=== PATIENT | female | born 1950 | race Caucasian/White ===

== ENCOUNTER 2017-11-25 18:24 | Inpatient (IN) | payer MEDICARE, OTHER ==
[2017-11-25] MEDS: DILTIAZEM 25 MG INJ IV (19:37)
[2017-11-25] MEDS: ONDANSETRON 4 MG INJ IV (19:42)
[2017-11-25] MEDS: morphine 4 MG/ML VIAL IV (19:43)
[2017-11-25] MEDS: ASPIRIN 325 MG TAB PO (19:45)
[2017-11-25] MEDS: SOD CHLORIDE 0.9% 500 ML IV (19:51)
[2017-11-25] MEDS: DILTIAZEM-D5W 125MG/125ML DRIP 125 ML IV (19:51)
[2017-11-25 19:59] LABS: ADD MAN DIFF? NO
[2017-11-25 20:02] LABS: WHITE BLOOD COUNT 7.9 10^3/ul (4.8-10.8)
[2017-11-25 20:02] LABS: BASOPHILS % 0.5 % (0.0-2.0); EOSINOPHILS % 0.4 % (0.0-7.0); HEMATOCRIT 39.2 % (37.0-47.0); HEMOGLOBIN 12.7 g/dl (12.0-16.0); LYMPHOCYTES % 25.1 % (15.0-51.0); MEAN CORPUSCULAR HGB CONC 32.4 g/dl (32.0-37.0); MEAN CORPUSCULAR VOLUME 83.4 fl (82.0-101.0); MEAN PLATELET VOLUME 11.1 fl (7.4-10.4); MONOCYTE # 0.5 10^3/ul (0.3-0.9); MONOCYTES % 6.7 % (0.0-11.0); NEUTROPHIL # 5.3 10^3/ul (1.6-7.5); NEUTROPHILS % 66.9 % (39.0-77.0); PLATELET COUNT 271 10^3/UL (140-415)
[2017-11-25 20:21] LABS: ANION GAP 15 (8-16); BLOOD UREA NITROGEN 18 mg/dl (7-20); CARBON DIOXIDE 26 mmol/L (21-31); CHLORIDE 107 mmol/L (97-110); CREATININE 0.55 mg/dl (0.44-1.00); GLUCOSE 212 mg/dl (70-220); POTASSIUM 4.1 mmol/L (3.5-5.1); SODIUM 144 mmol/L (135-144)
[2017-11-25 20:33] LABS: B-TYPE NATRIURETIC PEPTIDE 1520 PG/ML (0-125); TROPONIN-I 0.046 ng/ml (0.00-0.12)
[2017-11-25] MEDS ORDERED: ACETAMINOPHEN 325 MG TAB PO (22:30)
[2017-11-25] MEDS ORDERED: ONDANSETRON 4 MG INJ IV (22:30)
[2017-11-26 03:49] LABS: CREATINE KINASE 33 IU/L (23-200)
[2017-11-26 04:01] LABS: CK INDEX 2.7; CK-MB 0.89 ng/ml (0.0-2.4); TROPONIN-I 0.047 ng/ml (0.00-0.12)
[2017-11-26] MEDS ORDERED: CARISOPRODOL 350 MG TAB PO (06:00)
[2017-11-26] MEDS ORDERED: NITROGLYCERIN (SL) 0.4 MG TAB SL (06:00)
[2017-11-26] MEDS ORDERED: ALBUTEROL/IPRATROPIUM (NEB) 3 ML AMP HHN (06:00)
[2017-11-26] MEDS ORDERED: NACL 0.9% 3 ML SYG IV (06:00)
[2017-11-26] MEDS ORDERED: IBUPROFEN 800 MG TAB PO (06:00)
[2017-11-26] MEDS: Discontinue current oral sulfonylureas (glyburide, glipizide, and/or glimepiride) prior to XX (07:00)
[2017-11-26] MEDS: HYPOGLYCEMIA PROTOCOL when Glucose is <70 mg/dL or symptomatic <90 mg/dL. XX (07:00)
[2017-11-26] MEDS ORDERED: DEXTROSE 50% 50 ML SYRINGE IV ×2 (07:30)
[2017-11-26] MEDS ORDERED: GLUCAGON 1 MG INJ IM (07:30)
[2017-11-26] MEDS ORDERED: GLUCOSE GEL 15 GRAM TUBE PO ×2 (07:30)
[2017-11-26] MEDS: [UNRECOGNIZED DRUG - REMARK] XX ×3 (07:30→23:30)
[2017-11-26] MEDS ORDERED: GLUCOSE GEL 15 GRAM TUBE BUCCAL (07:30)
[2017-11-26 08:43] LABS: ADD MAN DIFF? NO
[2017-11-26 08:49] LABS: BASOPHILS % 0.3 % (0.0-2.0); EOSINOPHILS % 0.4 % (0.0-7.0); HEMATOCRIT 39.8 % (37.0-47.0); HEMOGLOBIN 12.5 g/dl (12.0-16.0); LYMPHOCYTES # 2.2 10^3/ul (0.8-2.9); LYMPHOCYTES % 32.2 % (15.0-51.0); MEAN CORPUSCULAR HEMOGLOBIN 26.9 pg (29.0-33.0); MEAN CORPUSCULAR HGB CONC 31.4 g/dl (32.0-37.0); MEAN CORPUSCULAR VOLUME 85.6 fl (82.0-101.0); MEAN PLATELET VOLUME 10.4 fl (7.4-10.4); MONOCYTE # 0.6 10^3/ul (0.3-0.9); MONOCYTES % 8.2 % (0.0-11.0); NEUTROPHILS % 58.8 % (39.0-77.0); PLATELET COUNT 244 10^3/UL (140-415); RED BLOOD COUNT 4.65 10^6/ul (4.20-5.40); RED CELL DISTRIBUTION WIDTH 13.8 % (11.5-14.5)
[2017-11-26 08:49] LABS: WHITE BLOOD COUNT 6.8 10^3/ul (4.8-10.8)
[2017-11-26] MEDS ORDERED: INDAPAMIDE 2.5 MG PO (09:00)
[2017-11-26] MEDS ORDERED: ASPIRIN (EC) 81 MG TAB PO (09:00)
[2017-11-26] MEDS: BACLOFEN 10 MG TAB PO (09:07)
[2017-11-26] MEDS: INSULIN GLARGINE [LANtus] 3 ML PEN SC (09:07)
[2017-11-26] MEDS: LISINOPRIL 20 MG TAB PO (09:08)
[2017-11-26] MEDS: MELOXICAM 7.5 MG TAB PO (09:08)
[2017-11-26] MEDS: METOPROLOL 25 MG TAB PO ×2 (09:08→21:52)
[2017-11-26 09:09] LABS: ALANINE AMINOTRANSFERASE 28 IU/L (13-69); ALBUMIN/GLOBULIN RATIO 1.48; ALKALINE PHOSPHATASE 69 IU/L (42-121); ANION GAP 16 (8-16); ASPARTATE AMINO TRANSFERASE 16 IU/L (15-46); BILIRUBIN,INDIRECT 0.2 mg/dl (0-1.1); BILIRUBIN,TOTAL 0.2 mg/dl (0.2-1.3); BLOOD UREA NITROGEN 16 mg/dl (7-20); CALCIUM 9.9 mg/dl (8.4-10.2); CARBON DIOXIDE 30 mmol/L (21-31); CHLORIDE 104 mmol/L (97-110); CHOL/HDL RATIO 3.4 RATIO; CHOLESTEROL 145 mg/dl (100-200); CREATININE 0.58 mg/dl (0.44-1.00); GLUCOSE 207 mg/dl (70-220); HDL CHOLESTEROL 42 mg/dl (35-98); LDL CHOLESTEROL,CALCULATED 75 mg/dl; MAGNESIUM 1.6 mg/dl (1.7-2.5); SODIUM 145 mmol/L (135-144); TOTAL PROTEIN 6.7 g/dl (6.1-8.1); TRIGLYCERIDES 139 mg/dl (0-149)
[2017-11-26] MEDS: HEPARIN 5,000 UNIT/0.5 ML VIAL SC ×2 (09:09→21:57)
[2017-11-26 09:11] LABS: CREATINE KINASE 28 IU/L (23-200)
[2017-11-26 09:17] LABS: HEMOGLOBIN A1C 8.2 % (0-5.9)
[2017-11-26 09:21] LABS: CK INDEX 3.1; CK-MB 0.88 ng/ml (0.0-2.4); TROPONIN-I 0.036 ng/ml (0.00-0.12)
[2017-11-26] MEDS: INSULIN ASPART [NOVOLOG] 3 ML PEN SC ×4 (09:21→21:00)
[2017-11-26] MEDS: ONDANSETRON 4 MG INJ IV (10:46)
[2017-11-26] MEDS: morphine 2 MG INJ IV ×2 (10:46→17:36)
[2017-11-26] MEDS: MAGNESIUM OXIDE 400 MG TAB PO ×2 (14:02→22:54)
[2017-11-26] MEDS: ATORVASTATIN 40 MG TAB PO (21:52)
[2017-11-27] MEDS: LORAZEPAM 0.5 MG TAB PO ×2 (00:19→22:26)
[2017-11-27] MEDS: morphine 2 MG INJ IV ×2 (00:19→22:45)
[2017-11-27] MEDS: ACCU-CHEK XX (02:00)
[2017-11-27] MEDS: [UNRECOGNIZED DRUG - REMARK] XX ×3 (07:30→23:30)
[2017-11-27 08:16] LABS: ADD MAN DIFF? NO
[2017-11-27 08:18] LABS: WHITE BLOOD COUNT 5.5 10^3/ul (4.8-10.8)
[2017-11-27 08:18] LABS: BASOPHILS % 0.5 % (0.0-2.0); EOSINOPHILS # 0.1 10^3/ul (0.0-0.5); EOSINOPHILS % 0.9 % (0.0-7.0); HEMATOCRIT 37.9 % (37.0-47.0); HEMOGLOBIN 12.1 g/dl (12.0-16.0); LYMPHOCYTES # 2.3 10^3/ul (0.8-2.9); LYMPHOCYTES % 42.2 % (15.0-51.0); MEAN CORPUSCULAR HEMOGLOBIN 27.1 pg (29.0-33.0); MEAN CORPUSCULAR HGB CONC 31.9 g/dl (32.0-37.0); MEAN PLATELET VOLUME 10.8 fl (7.4-10.4); MONOCYTE # 0.4 10^3/ul (0.3-0.9); MONOCYTES % 7.8 % (0.0-11.0); NEUTROPHIL # 2.7 10^3/ul (1.6-7.5); NEUTROPHILS % 48.6 % (39.0-77.0); PLATELET COUNT 233 10^3/UL (140-415); RED BLOOD COUNT 4.46 10^6/ul (4.20-5.40); RED CELL DISTRIBUTION WIDTH 14.2 % (11.5-14.5)
[2017-11-27 08:54] LABS: ANION GAP 13 (8-16); BLOOD UREA NITROGEN 28 mg/dl (7-20); CALCIUM 9.2 mg/dl (8.4-10.2); CARBON DIOXIDE 28 mmol/L (21-31); CHLORIDE 107 mmol/L (97-110); CREATININE 0.57 mg/dl (0.44-1.00); GLUCOSE 234 mg/dl (70-220); MAGNESIUM 1.7 mg/dl (1.7-2.5); PHOSPHORUS 3.3 mg/dl (2.5-4.9); POTASSIUM 4.3 mmol/L (3.5-5.1); SODIUM 144 mmol/L (135-144)
[2017-11-27] MEDS: LISINOPRIL 20 MG TAB PO (09:00)
[2017-11-27] MEDS: INFLUENZA VIRUS VACCINE 0.5 ML SYG IM* (09:00)
[2017-11-27] MEDS: BACLOFEN 10 MG TAB PO (09:00)
[2017-11-27] MEDS: MAGNESIUM OXIDE 400 MG TAB PO ×2 (09:00→19:44)
[2017-11-27] MEDS: METOPROLOL 25 MG TAB PO (09:01)
[2017-11-27] MEDS: INSULIN ASPART [NOVOLOG] 3 ML PEN SC ×7 (09:12→21:03)
[2017-11-27] MEDS: INSULIN GLARGINE [LANtus] 3 ML PEN SC (09:12)
[2017-11-27] MEDS: HEPARIN 5,000 UNIT/0.5 ML VIAL SC ×2 (09:12→21:04)
[2017-11-27] MEDS: MELOXICAM 7.5 MG TAB PO (12:05)
[2017-11-27] MEDS: FUROSEMIDE 40 MG INJ IV (16:20)
[2017-11-27] MEDS: HYDROCODONE/APAP (5/325) TAB PO (16:25)
[2017-11-27] MEDS: RIVAROXABAN 20 MG TABLET PO (17:36)
[2017-11-27] MEDS ORDERED: FUROSEMIDE 40 MG INJ IV (18:00)
[2017-11-27] MEDS: ATORVASTATIN 40 MG TAB PO (19:43)
[2017-11-27] MEDS: METOPROLOL 50 MG TAB PO (19:44)
[2017-11-28] MEDS: ACCU-CHEK XX (02:00)
[2017-11-28] MEDS: FUROSEMIDE 40 MG INJ IV (06:14)
[2017-11-28 06:39] LABS: ADD MAN DIFF? NO
[2017-11-28 06:52] LABS: BASOPHILS % 0.4 % (0.0-2.0); EOSINOPHILS # 0.1 10^3/ul (0.0-0.5); HEMATOCRIT 41.2 % (37.0-47.0); HEMOGLOBIN 12.9 g/dl (12.0-16.0); LYMPHOCYTES # 3.1 10^3/ul (0.8-2.9); LYMPHOCYTES % 44.8 % (15.0-51.0); MEAN CORPUSCULAR HEMOGLOBIN 26.7 pg (29.0-33.0); MEAN CORPUSCULAR HGB CONC 31.3 g/dl (32.0-37.0); MEAN CORPUSCULAR VOLUME 85.1 fl (82.0-101.0); MEAN PLATELET VOLUME 10.6 fl (7.4-10.4); MONOCYTE # 0.6 10^3/ul (0.3-0.9); MONOCYTES % 8.7 % (0.0-11.0); NEUTROPHIL # 3.1 10^3/ul (1.6-7.5); NEUTROPHILS % 44.8 % (39.0-77.0); PLATELET COUNT 262 10^3/UL (140-415); RED BLOOD COUNT 4.84 10^6/ul (4.20-5.40); RED CELL DISTRIBUTION WIDTH 13.9 % (11.5-14.5)
[2017-11-28] MEDS: [UNRECOGNIZED DRUG - REMARK] XX (07:12)
[2017-11-28 07:21] LABS: ALANINE AMINOTRANSFERASE 52 IU/L (13-69); ALBUMIN 3.8 g/dl (3.3-4.9); ALBUMIN/GLOBULIN RATIO 1.35; ALKALINE PHOSPHATASE 79 IU/L (42-121); ANION GAP 17 (8-16); ASPARTATE AMINO TRANSFERASE 27 IU/L (15-46); BILIRUBIN,INDIRECT 0.1 mg/dl (0-1.1); BILIRUBIN,TOTAL 0.1 mg/dl (0.2-1.3); BLOOD UREA NITROGEN 34 mg/dl (7-20); CALCIUM 9.7 mg/dl (8.4-10.2); CARBON DIOXIDE 31 mmol/L (21-31); CHLORIDE 106 mmol/L (97-110); CREATININE 0.68 mg/dl (0.44-1.00); GLUCOSE 227 mg/dl (70-220); POTASSIUM 4.8 mmol/L (3.5-5.1); SODIUM 149 mmol/L (135-144); TOTAL PROTEIN 6.6 g/dl (6.1-8.1)
[2017-11-28] MEDS: INSULIN ASPART [NOVOLOG] 3 ML PEN SC ×7 (07:49→21:36)
[2017-11-28] MEDS: INSULIN GLARGINE [LANtus] 3 ML PEN SC (07:49)
[2017-11-28] MEDS: LISINOPRIL 20 MG TAB PO (08:21)
[2017-11-28] MEDS: MAGNESIUM OXIDE 400 MG TAB PO ×2 (08:22→21:18)
[2017-11-28] MEDS: METOPROLOL 50 MG TAB PO ×2 (08:22→21:18)
[2017-11-28] MEDS: BACLOFEN 10 MG TAB PO (08:22)
[2017-11-28] MEDS: HEPARIN 5,000 UNIT/0.5 ML VIAL SC ×2 (08:25→21:36)
[2017-11-28] MEDS: INDAPAMIDE 2.5 MG PO (10:22)
[2017-11-28] MEDS: HYDROCODONE/APAP (5/325) TAB PO (10:22)
[2017-11-28] MEDS: FUROSEMIDE 20 MG TAB PO (11:53)
[2017-11-28] MEDS: RIVAROXABAN 20 MG TABLET PO (17:27)
[2017-11-28] MEDS: ATORVASTATIN 40 MG TAB PO (21:18)
[2017-11-28] MEDS: morphine 2 MG INJ IV (21:19)
[2017-11-28] MEDS: LORAZEPAM 0.5 MG TAB PO (21:32)
[2017-11-29] MEDS: ACCU-CHEK XX (02:32)
[2017-11-29] MEDS: METOPROLOL 50 MG TAB PO ×2 (08:17→20:50)
[2017-11-29] MEDS: INDAPAMIDE 2.5 MG PO (08:18)
[2017-11-29] MEDS: FUROSEMIDE 20 MG TAB PO (08:18)
[2017-11-29] MEDS: MAGNESIUM OXIDE 400 MG TAB PO ×2 (08:18→20:49)
[2017-11-29] MEDS: LISINOPRIL 20 MG TAB PO (08:19)
[2017-11-29] MEDS: HEPARIN 5,000 UNIT/0.5 ML VIAL SC ×2 (08:25→20:50)
[2017-11-29] MEDS: INSULIN ASPART [NOVOLOG] 3 ML PEN SC ×7 (08:30→20:51)
[2017-11-29] MEDS: BACLOFEN 10 MG TAB PO (09:00)
[2017-11-29] MEDS: INSULIN GLARGINE [LANtus] 3 ML PEN SC (13:04)
[2017-11-29] MEDS ORDERED: morphine LIQ (10 MG/5 ML) CUP PO (13:30)
[2017-11-29] MEDS: ACETAMINOPHEN 325 MG TAB PO (16:29)
[2017-11-29] MEDS: RIVAROXABAN 20 MG TABLET PO (17:15)
[2017-11-29] MEDS: ATORVASTATIN 40 MG TAB PO (20:49)
[2017-11-29] MEDS: HYDROCODONE/APAP (5/325) TAB PO (20:56)
[2017-11-30] MEDS: ACCU-CHEK XX (00:01)
[2017-11-30] MEDS: LORAZEPAM 0.5 MG TAB PO (02:46)
[2017-11-30] MEDS: HYDROCODONE/APAP (5/325) TAB PO (02:46)
[2017-11-30] MEDS ORDERED: hydrALAzine 20 MG INJ (04:08)
[2017-11-30] MEDS: hydrALAzine 20 MG INJ IV (04:10)
[2017-11-30] MEDS: BACLOFEN 10 MG TAB PO (08:26)
[2017-11-30] MEDS: MAGNESIUM OXIDE 400 MG TAB PO (08:26)
[2017-11-30] MEDS: FUROSEMIDE 20 MG TAB PO (08:27)
[2017-11-30] MEDS: LISINOPRIL 20 MG TAB PO (08:27)
[2017-11-30] MEDS: INDAPAMIDE 2.5 MG PO (08:28)
[2017-11-30] MEDS: METOPROLOL 50 MG TAB PO (08:28)
[2017-11-30] MEDS: HEPARIN 5,000 UNIT/0.5 ML VIAL SC (08:32)
[2017-11-30] MEDS: INSULIN ASPART [NOVOLOG] 3 ML PEN SC ×4 (08:33→13:00)
[2017-11-30] MEDS: INSULIN GLARGINE [LANtus] 3 ML PEN SC (08:41)
[2017-11-30] MEDS: ACETAMINOPHEN 325 MG TAB PO (13:46)
== END 2017-11-30 16:34 | disposition home or self-care (01) | DRG 293 ==
LOC: E/R 18:24 → MS3 22:18 → MS4 11-26 18:55
DX: I11.0 Hypertensive heart disease with heart failure (principal); I48.91 Unspecified atrial fibrillation; E11.65 Type 2 diabetes mellitus with hyperglycemia; I50.33 Acute on chronic diastolic (congestive) heart failure; M25.552 Pain in left hip; Z79.84 Long term (current) use of oral hypoglycemic drugs; Z79.82 Long term (current) use of aspirin; Z86.73 Personal history of transient ischemic attack (TIA), and cerebral infarction without residual deficits
CPT/HCPCS: 36415; 71045; 73510; 73700; 80048; 80053; 80061; 82550; 82553; 82962; 83036; 83735; 83880; 84100; 84443; 84484; 85025; 90686; 93005; 93306; 96372; 96374; 96375; 96376; 97110; 97116; 97163; 99291-25

== ENCOUNTER 2017-11-30 23:23 | Inpatient (IN) | payer MEDICARE, OTHER ==
[2017-12-01] MEDS: HYDROCODONE/APAP (10/325) TAB PO (00:08)
[2017-12-01] MEDS: KETOROLAC 30 MG INJ IM (01:29)
[2017-12-01 03:19] LABS: ADD MAN DIFF? NO
[2017-12-01 03:20] LABS: WHITE BLOOD COUNT 9.1 10^3/ul (4.8-10.8)
[2017-12-01 03:20] LABS: BASOPHILS % 0.3 % (0.0-2.0); EOSINOPHILS # 0.1 10^3/ul (0.0-0.5); EOSINOPHILS % 0.7 % (0.0-7.0); HEMATOCRIT 40.8 % (37.0-47.0); HEMOGLOBIN 13.1 g/dl (12.0-16.0); LYMPHOCYTES # 2.8 10^3/ul (0.8-2.9); LYMPHOCYTES % 30.7 % (15.0-51.0); MEAN CORPUSCULAR HGB CONC 32.1 g/dl (32.0-37.0); MEAN CORPUSCULAR VOLUME 84.1 fl (82.0-101.0); MEAN PLATELET VOLUME 10.7 fl (7.4-10.4); MONOCYTE # 0.8 10^3/ul (0.3-0.9); MONOCYTES % 8.7 % (0.0-11.0); NEUTROPHIL # 5.4 10^3/ul (1.6-7.5); NEUTROPHILS % 59.2 % (39.0-77.0); PLATELET COUNT 249 10^3/UL (140-415); RED BLOOD COUNT 4.85 10^6/ul (4.20-5.40)
[2017-12-01 03:47] LABS: ADD UMIC NO; UR ASCORBIC ACID NEGATIVE (NEGATIVE); UR BILIRUBIN (Dip) NEGATIVE (NEGATIVE); UR BLOOD (Dip) NEGATIVE (NEGATIVE); UR CLARITY CLEAR (CLEAR); UR COLOR YELLOW (YELLOW); UR GLUCOSE (Dip) 2+ mg/dL (NEGATIVE); UR KETONES (Dip) NEGATIVE (NEGATIVE); UR LEUKOCYTE ESTERASE (Dip) NEGATIVE Leu/ul (NEGATIVE); UR NITRITE (Dip) NEGATIVE (NEGATIVE); UR SPECIFIC GRAVITY (Dip) 1.012 (1.003-1.030); UR TOTAL PROTEIN (Dip) NEGATIVE (NEGATIVE); UR UROBILINOGEN (Dip) NEGATIVE (NEGATIVE)
[2017-12-01 03:54] LABS: ALANINE AMINOTRANSFERASE 69 IU/L (13-69); ALBUMIN 4.2 g/dl (3.3-4.9); ALBUMIN/GLOBULIN RATIO 1.31; ALKALINE PHOSPHATASE 90 IU/L (42-121); ANION GAP 15 (8-16); ASPARTATE AMINO TRANSFERASE 27 IU/L (15-46); BILIRUBIN,INDIRECT 0.2 mg/dl (0-1.1); BILIRUBIN,TOTAL 0.2 mg/dl (0.2-1.3); BLOOD UREA NITROGEN 26 mg/dl (7-20); CALCIUM 10.3 mg/dl (8.4-10.2); CARBON DIOXIDE 29 mmol/L (21-31); CHLORIDE 102 mmol/L (97-110); CREATININE 0.61 mg/dl (0.44-1.00); GLUCOSE 235 mg/dl (70-220); LIPASE 50 U/L (23-300); POTASSIUM 3.7 mmol/L (3.5-5.1); SODIUM 142 mmol/L (135-144); TOTAL PROTEIN 7.4 g/dl (6.1-8.1)
[2017-12-01 04:05] LABS: INR 1.01; PROTIME 13.4 Sec (11.9-14.9)
[2017-12-01 04:06] LABS: PARTIAL THROMBOPLASTIN TIME 27.3 Sec (25.0-35.0)
[2017-12-01] MEDS: LORAZEPAM 2 MG INJ IV (05:40)
[2017-12-01] MEDS: HYDROCODONE/APAP (5/325) TAB PO ×3 (10:59→21:36)
[2017-12-01] MEDS ORDERED: [UNRECOGNIZED DRUG - OTHER] PO (12:30)
[2017-12-01] MEDS ORDERED: morphine 2 MG INJ IV (12:30)
[2017-12-01] MEDS ORDERED: GLUCOSE GEL 15 GRAM TUBE PO ×2 (12:30)
[2017-12-01] MEDS ORDERED: METFORMIN HCL PO (12:30)
[2017-12-01] MEDS ORDERED: DEXTROSE 50% 50 ML SYRINGE IV ×2 (12:30)
[2017-12-01] MEDS ORDERED: LINAGLIPTIN PO (12:30)
[2017-12-01] MEDS ORDERED: GLUCAGON 1 MG INJ IM (12:30)
[2017-12-01] MEDS ORDERED: GLUCOSE GEL 15 GRAM TUBE BUCCAL (12:30)
[2017-12-01] MEDS: INSULIN ASPART [NOVOLOG] 3 ML PEN SC ×5 (12:48→21:00)
[2017-12-01] MEDS: METOPROLOL (XL) 50 MG TAB PO (14:17)
[2017-12-01] MEDS ORDERED: DICLOFENAC SODIUM 1% GEL 100 GM TUBE TP (17:00)
[2017-12-01] MEDS: metFORMIN 500 MG TAB PO (17:31)
[2017-12-01] MEDS: RIVAROXABAN 20 MG TABLET PO (17:31)
[2017-12-01] MEDS: LINAGLIPTIN 5 MG TABLET PO (17:31)
[2017-12-01] MEDS: INSULIN GLARGINE [LANtus] 3 ML PEN SC (21:27)
[2017-12-01] MEDS: ATORVASTATIN 40 MG TAB PO (21:33)
[2017-12-02] MEDS: ACCU-CHEK XX (02:00)
[2017-12-02 05:08] LABS: ADD MAN DIFF? NO
[2017-12-02 05:10] LABS: BASOPHILS % 0.5 % (0.0-2.0); EOSINOPHILS # 0.1 10^3/ul (0.0-0.5); EOSINOPHILS % 1.3 % (0.0-7.0); HEMATOCRIT 39.5 % (37.0-47.0); HEMOGLOBIN 12.7 g/dl (12.0-16.0); LYMPHOCYTES # 3.3 10^3/ul (0.8-2.9); LYMPHOCYTES % 41.9 % (15.0-51.0); MEAN CORPUSCULAR HEMOGLOBIN 27.2 pg (29.0-33.0); MEAN CORPUSCULAR HGB CONC 32.2 g/dl (32.0-37.0); MEAN CORPUSCULAR VOLUME 84.6 fl (82.0-101.0); MONOCYTE # 0.7 10^3/ul (0.3-0.9); MONOCYTES % 9.3 % (0.0-11.0); NEUTROPHIL # 3.7 10^3/ul (1.6-7.5); NEUTROPHILS % 46.6 % (39.0-77.0); PLATELET COUNT 248 10^3/UL (140-415); RED BLOOD COUNT 4.67 10^6/ul (4.20-5.40); RED CELL DISTRIBUTION WIDTH 14.5 % (11.5-14.5)
[2017-12-02 05:10] LABS: WHITE BLOOD COUNT 7.9 10^3/ul (4.8-10.8)
[2017-12-02 05:39] LABS: ANION GAP 16 (8-16); BLOOD UREA NITROGEN 50 mg/dl (7-20); CALCIUM 9.8 mg/dl (8.4-10.2); CARBON DIOXIDE 26 mmol/L (21-31); CHLORIDE 105 mmol/L (97-110); CREATININE 0.81 mg/dl (0.44-1.00); GLUCOSE 185 mg/dl (70-220); POTASSIUM 4.6 mmol/L (3.5-5.1); SODIUM 142 mmol/L (135-144)
[2017-12-02] MEDS: metFORMIN 500 MG TAB PO ×2 (08:52→17:38)
[2017-12-02] MEDS: LINAGLIPTIN 5 MG TABLET PO ×2 (08:53→17:38)
[2017-12-02] MEDS: INSULIN ASPART [NOVOLOG] 3 ML PEN SC ×7 (08:55→20:56)
[2017-12-02] MEDS: METOPROLOL (XL) 50 MG TAB PO ×2 (08:57→09:00)
[2017-12-02] MEDS: LISINOPRIL 20 MG TAB PO (09:14)
[2017-12-02] MEDS: HYDROCODONE/APAP (5/325) TAB PO ×3 (09:14→22:43)
[2017-12-02] MEDS: RIVAROXABAN 20 MG TABLET PO (17:37)
[2017-12-02] MEDS: ATORVASTATIN 40 MG TAB PO (20:59)
[2017-12-02] MEDS: INSULIN GLARGINE [LANtus] 3 ML PEN SC (20:59)
[2017-12-03] MEDS: ACCU-CHEK XX (02:00)
[2017-12-03] MEDS: INSULIN ASPART [NOVOLOG] 3 ML PEN SC ×7 (08:26→20:38)
[2017-12-03] MEDS: METOPROLOL (XL) 50 MG TAB PO (08:28)
[2017-12-03] MEDS: LISINOPRIL 20 MG TAB PO (08:28)
[2017-12-03] MEDS: LINAGLIPTIN 5 MG TABLET PO ×2 (08:28→17:43)
[2017-12-03] MEDS: metFORMIN 500 MG TAB PO ×2 (08:28→17:43)
[2017-12-03] MEDS: HYDROCODONE/APAP (5/325) TAB PO ×3 (08:33→22:40)
[2017-12-03] MEDS: BISACODYL (EC) 5 MG TAB PO (12:48)
[2017-12-03] MEDS ORDERED: morphine 2 MG INJ IV (13:00)
[2017-12-03] MEDS: RIVAROXABAN 20 MG TABLET PO (17:43)
[2017-12-03] MEDS: morphine 2 MG INJ IV (17:54)
[2017-12-03] MEDS: ATORVASTATIN 40 MG TAB PO (20:39)
[2017-12-03] MEDS: INSULIN GLARGINE [LANtus] 3 ML PEN SC (20:41)
[2017-12-04] MEDS: ACCU-CHEK XX (01:03)
[2017-12-04] MEDS: morphine 2 MG INJ IV ×5 (06:17→17:23)
[2017-12-04] MEDS: INSULIN ASPART [NOVOLOG] 3 ML PEN SC ×7 (08:21→20:54)
[2017-12-04] MEDS: metFORMIN 500 MG TAB PO ×2 (08:22→17:17)
[2017-12-04] MEDS: METOPROLOL (XL) 50 MG TAB PO (08:23)
[2017-12-04] MEDS: LISINOPRIL 20 MG TAB PO (08:23)
[2017-12-04] MEDS: LINAGLIPTIN 5 MG TABLET PO ×2 (08:27→17:17)
[2017-12-04] MEDS: CALCIUM CARBONATE 500 MG CHEW TAB PO (16:10)
[2017-12-04] MEDS: BISACODYL (EC) 5 MG TAB PO (17:17)
[2017-12-04] MEDS: RIVAROXABAN 20 MG TABLET PO (17:21)
[2017-12-04] MEDS: INSULIN GLARGINE [LANtus] 3 ML PEN SC (20:11)
[2017-12-04] MEDS: ATORVASTATIN 40 MG TAB PO (20:51)
[2017-12-04] MEDS: HYDROCODONE/APAP (5/325) TAB PO (21:36)
[2017-12-05] MEDS: ACCU-CHEK XX (02:00)
[2017-12-05 04:53] LABS: ADD MAN DIFF? NO
[2017-12-05 05:05] LABS: WHITE BLOOD COUNT 8.2 10^3/ul (4.8-10.8)
[2017-12-05 05:05] LABS: BASOPHILS % 0.5 % (0.0-2.0); EOSINOPHILS # 0.1 10^3/ul (0.0-0.5); EOSINOPHILS % 0.9 % (0.0-7.0); HEMATOCRIT 39.6 % (37.0-47.0); HEMOGLOBIN 12.8 g/dl (12.0-16.0); LYMPHOCYTES % 36.8 % (15.0-51.0); MEAN CORPUSCULAR HEMOGLOBIN 27.2 pg (29.0-33.0); MEAN CORPUSCULAR HGB CONC 32.3 g/dl (32.0-37.0); MEAN CORPUSCULAR VOLUME 84.3 fl (82.0-101.0); MONOCYTE # 0.6 10^3/ul (0.3-0.9); MONOCYTES % 7.6 % (0.0-11.0); NEUTROPHIL # 4.4 10^3/ul (1.6-7.5); NEUTROPHILS % 53.8 % (39.0-77.0); PLATELET COUNT 240 10^3/UL (140-415); RED CELL DISTRIBUTION WIDTH 14.1 % (11.5-14.5)
[2017-12-05 05:32] LABS: ANION GAP 18 (8-16); BLOOD UREA NITROGEN 32 mg/dl (7-20); CALCIUM 9.9 mg/dl (8.4-10.2); CARBON DIOXIDE 23 mmol/L (21-31); CHLORIDE 109 mmol/L (97-110); CREATININE 0.59 mg/dl (0.44-1.00); GLUCOSE 146 mg/dl (70-220); POTASSIUM 4.2 mmol/L (3.5-5.1); SODIUM 146 mmol/L (135-144)
[2017-12-05] MEDS: morphine 2 MG INJ IV ×5 (06:00→23:15)
[2017-12-05] MEDS: metFORMIN 500 MG TAB PO ×2 (08:43→18:05)
[2017-12-05] MEDS: INSULIN ASPART [NOVOLOG] 3 ML PEN SC ×7 (08:44→20:34)
[2017-12-05] MEDS: METOPROLOL (XL) 50 MG TAB PO (08:48)
[2017-12-05] MEDS: LISINOPRIL 20 MG TAB PO (08:49)
[2017-12-05] MEDS: LINAGLIPTIN 5 MG TABLET PO ×2 (08:51→18:05)
[2017-12-05] MEDS: HYDROCODONE/APAP (5/325) TAB PO ×2 (09:02→20:44)
[2017-12-05] MEDS: POLYETHYLENE GLYCOL 17 GM PACKET PO (10:00)
[2017-12-05] MEDS: SENNA/DOCUSATE NA (8.6MG/50MG) TAB PO ×2 (10:00→20:44)
[2017-12-05] MEDS: RIVAROXABAN 20 MG TABLET PO (18:43)
[2017-12-05] MEDS: ATORVASTATIN 40 MG TAB PO (20:45)
[2017-12-05] MEDS: INSULIN GLARGINE [LANtus] 3 ML PEN SC (20:46)
[2017-12-06] MEDS: HYDROCODONE/APAP (5/325) TAB PO ×3 (01:40→20:46)
[2017-12-06] MEDS: ACCU-CHEK XX (01:40)
[2017-12-06] MEDS: morphine 2 MG INJ IV ×3 (05:01→17:21)
[2017-12-06] MEDS: metFORMIN 500 MG TAB PO ×2 (07:59→17:17)
[2017-12-06] MEDS: INSULIN ASPART [NOVOLOG] 3 ML PEN SC ×7 (08:01→20:50)
[2017-12-06] MEDS: METOPROLOL (XL) 50 MG TAB PO (08:06)
[2017-12-06] MEDS: POLYETHYLENE GLYCOL 17 GM PACKET PO (08:06)
[2017-12-06] MEDS: SENNA/DOCUSATE NA (8.6MG/50MG) TAB PO ×2 (08:06→20:47)
[2017-12-06] MEDS: LISINOPRIL 20 MG TAB PO (08:06)
[2017-12-06] MEDS: LINAGLIPTIN 5 MG TABLET PO ×2 (08:09→17:18)
[2017-12-06 09:21] LABS: ADD MAN DIFF? NO
[2017-12-06 09:27] LABS: BASOPHIL # 0.1 10^3/ul (0.0-0.1); BASOPHILS % 0.7 % (0.0-2.0); EOSINOPHILS # 0.1 10^3/ul (0.0-0.5); EOSINOPHILS % 1.1 % (0.0-7.0); HEMATOCRIT 40.2 % (37.0-47.0); HEMOGLOBIN 12.9 g/dl (12.0-16.0); LYMPHOCYTES # 2.5 10^3/ul (0.8-2.9); LYMPHOCYTES % 35.5 % (15.0-51.0); MEAN CORPUSCULAR HGB CONC 32.1 g/dl (32.0-37.0); MEAN CORPUSCULAR VOLUME 84.3 fl (82.0-101.0); MEAN PLATELET VOLUME 11.1 fl (7.4-10.4); MONOCYTE # 0.6 10^3/ul (0.3-0.9); MONOCYTES % 7.8 % (0.0-11.0); NEUTROPHIL # 3.8 10^3/ul (1.6-7.5); NEUTROPHILS % 54.5 % (39.0-77.0); PLATELET COUNT 252 10^3/UL (140-415); RED BLOOD COUNT 4.77 10^6/ul (4.20-5.40); RED CELL DISTRIBUTION WIDTH 14.3 % (11.5-14.5)
[2017-12-06 09:55] LABS: ANION GAP 14 (8-16); BLOOD UREA NITROGEN 36 mg/dl (7-20); CALCIUM 9.5 mg/dl (8.4-10.2); CARBON DIOXIDE 24 mmol/L (21-31); CHLORIDE 107 mmol/L (97-110); CREATININE 0.57 mg/dl (0.44-1.00); GLUCOSE 196 mg/dl (70-220); POTASSIUM 4.2 mmol/L (3.5-5.1); SODIUM 141 mmol/L (135-144)
[2017-12-06] MEDS: RIVAROXABAN 20 MG TABLET PO (17:17)
[2017-12-06] MEDS: ATORVASTATIN 40 MG TAB PO (20:47)
[2017-12-06] MEDS: INSULIN GLARGINE [LANtus] 3 ML PEN SC (20:50)
[2017-12-07] MEDS: morphine 2 MG INJ IV ×3 (00:44→12:00)
[2017-12-07] MEDS: ACCU-CHEK XX (02:00)
[2017-12-07] MEDS: INSULIN ASPART [NOVOLOG] 3 ML PEN SC ×7 (08:00→20:41)
[2017-12-07] MEDS: SENNA/DOCUSATE NA (8.6MG/50MG) TAB PO ×2 (08:15→20:50)
[2017-12-07] MEDS: metFORMIN 500 MG TAB PO ×2 (08:15→17:36)
[2017-12-07] MEDS: LISINOPRIL 20 MG TAB PO (08:16)
[2017-12-07] MEDS: LINAGLIPTIN 5 MG TABLET PO ×2 (08:20→17:35)
[2017-12-07] MEDS: POLYETHYLENE GLYCOL 17 GM PACKET PO (08:21)
[2017-12-07] MEDS: METOPROLOL (XL) 50 MG TAB PO (08:22)
[2017-12-07 16:00] LABS: ANION GAP 19 (8-16); BLOOD UREA NITROGEN 31 mg/dl (7-20); CALCIUM 9.9 mg/dl (8.4-10.2); CARBON DIOXIDE 23 mmol/L (21-31); CHLORIDE 107 mmol/L (97-110); CREATININE 0.62 mg/dl (0.44-1.00); GLUCOSE 102 mg/dl (70-220); MAGNESIUM 1.7 mg/dl (1.7-2.5); POTASSIUM 4.5 mmol/L (3.5-5.1); SODIUM 144 mmol/L (135-144)
[2017-12-07] MEDS: RIVAROXABAN 20 MG TABLET PO (17:35)
[2017-12-07] MEDS: HYDROCODONE/APAP (5/325) TAB PO (17:36)
[2017-12-07 20:02] LABS: TROPONIN-I < 0.012 ng/ml (0.00-0.12)
[2017-12-07] MEDS: ATORVASTATIN 40 MG TAB PO (20:50)
[2017-12-07] MEDS: INSULIN GLARGINE [LANtus] 3 ML PEN SC (20:56)
[2017-12-08 01:24] LABS: TROPONIN-I 0.026 ng/ml (0.00-0.12)
[2017-12-08] MEDS: ACCU-CHEK XX (01:52)
[2017-12-08 05:51] LABS: ADD MAN DIFF? NO
[2017-12-08 05:54] LABS: BASOPHILS % 0.5 % (0.0-2.0); EOSINOPHILS # 0.1 10^3/ul (0.0-0.5); EOSINOPHILS % 0.8 % (0.0-7.0); HEMATOCRIT 40.1 % (37.0-47.0); HEMOGLOBIN 12.8 g/dl (12.0-16.0); LYMPHOCYTES # 3.2 10^3/ul (0.8-2.9); LYMPHOCYTES % 40.6 % (15.0-51.0); MEAN CORPUSCULAR HEMOGLOBIN 26.6 pg (29.0-33.0); MEAN CORPUSCULAR HGB CONC 31.9 g/dl (32.0-37.0); MEAN CORPUSCULAR VOLUME 83.2 fl (82.0-101.0); MEAN PLATELET VOLUME 10.7 fl (7.4-10.4); MONOCYTE # 0.6 10^3/ul (0.3-0.9); PLATELET COUNT 242 10^3/UL (140-415); RED BLOOD COUNT 4.82 10^6/ul (4.20-5.40); RED CELL DISTRIBUTION WIDTH 13.7 % (11.5-14.5)
[2017-12-08 05:54] LABS: WHITE BLOOD COUNT 7.9 10^3/ul (4.8-10.8)
[2017-12-08 06:37] LABS: TROPONIN-I 0.025 ng/ml (0.00-0.12)
[2017-12-08 06:52] LABS: ANION GAP 14 (8-16); BLOOD UREA NITROGEN 36 mg/dl (7-20); CALCIUM 10.2 mg/dl (8.4-10.2); CARBON DIOXIDE 24 mmol/L (21-31); CHLORIDE 109 mmol/L (97-110); GLUCOSE 130 mg/dl (70-220); POTASSIUM 4.4 mmol/L (3.5-5.1); SODIUM 143 mmol/L (135-144)
[2017-12-08] MEDS: LINAGLIPTIN 5 MG TABLET PO ×2 (08:45→17:09)
[2017-12-08] MEDS: SENNA/DOCUSATE NA (8.6MG/50MG) TAB PO ×2 (08:46→20:35)
[2017-12-08] MEDS: METOPROLOL (XL) 50 MG TAB PO (08:47)
[2017-12-08] MEDS: metFORMIN 500 MG TAB PO ×2 (08:47→17:10)
[2017-12-08] MEDS: LISINOPRIL 20 MG TAB PO ×2 (08:47→20:35)
[2017-12-08] MEDS: INSULIN ASPART [NOVOLOG] 3 ML PEN SC ×7 (08:49→20:38)
[2017-12-08] MEDS: POLYETHYLENE GLYCOL 17 GM PACKET PO (08:52)
[2017-12-08] MEDS: HYDROCODONE/APAP (5/325) TAB PO ×2 (08:55→16:18)
[2017-12-08] MEDS: RIVAROXABAN 20 MG TABLET PO (17:09)
[2017-12-08] MEDS: ATORVASTATIN 40 MG TAB PO (20:35)
[2017-12-08] MEDS: INSULIN GLARGINE [LANtus] 3 ML PEN SC (20:39)
[2017-12-09] MEDS: ACCU-CHEK XX (02:31)
[2017-12-09] MEDS: HYDROCODONE/APAP (5/325) TAB PO (02:33)
[2017-12-09] MEDS: metFORMIN 500 MG TAB PO ×2 (08:11→17:16)
[2017-12-09] MEDS: SENNA/DOCUSATE NA (8.6MG/50MG) TAB PO (08:12)
[2017-12-09] MEDS: LISINOPRIL 20 MG TAB PO ×2 (08:12→20:57)
[2017-12-09] MEDS: POLYETHYLENE GLYCOL 17 GM PACKET PO (08:12)
[2017-12-09] MEDS: METOPROLOL (XL) 25 MG TAB PO (08:12)
[2017-12-09] MEDS: INSULIN ASPART [NOVOLOG] 3 ML PEN SC ×7 (08:15→20:54)
[2017-12-09] MEDS: LINAGLIPTIN 5 MG TABLET PO ×2 (08:17→17:16)
[2017-12-09 10:00] LABS: ADD MAN DIFF? NO
[2017-12-09 10:03] LABS: WHITE BLOOD COUNT 7.2 10^3/ul (4.8-10.8)
[2017-12-09 10:03] LABS: BASOPHILS % 0.4 % (0.0-2.0); EOSINOPHILS % 0.6 % (0.0-7.0); HEMATOCRIT 40.7 % (37.0-47.0); LYMPHOCYTES # 2.2 10^3/ul (0.8-2.9); LYMPHOCYTES % 29.9 % (15.0-51.0); MEAN CORPUSCULAR HEMOGLOBIN 26.6 pg (29.0-33.0); MEAN CORPUSCULAR HGB CONC 31.9 g/dl (32.0-37.0); MEAN CORPUSCULAR VOLUME 83.4 fl (82.0-101.0); MEAN PLATELET VOLUME 10.9 fl (7.4-10.4); MONOCYTE # 0.4 10^3/ul (0.3-0.9); MONOCYTES % 5.8 % (0.0-11.0); NEUTROPHIL # 4.5 10^3/ul (1.6-7.5); PLATELET COUNT 249 10^3/UL (140-415); RED BLOOD COUNT 4.88 10^6/ul (4.20-5.40); RED CELL DISTRIBUTION WIDTH 13.6 % (11.5-14.5)
[2017-12-09 10:20] LABS: ANION GAP 13 (8-16); BLOOD UREA NITROGEN 24 mg/dl (7-20); CALCIUM 9.8 mg/dl (8.4-10.2); CARBON DIOXIDE 26 mmol/L (21-31); CHLORIDE 106 mmol/L (97-110); CREATININE 0.57 mg/dl (0.44-1.00); GLUCOSE 187 mg/dl (70-220); POTASSIUM 4.3 mmol/L (3.5-5.1); SODIUM 141 mmol/L (135-144)
[2017-12-09] MEDS: RIVAROXABAN 20 MG TABLET PO (17:17)
[2017-12-09] MEDS: INSULIN GLARGINE [LANtus] 3 ML PEN SC ×3 (20:00→22:32)
[2017-12-09] MEDS: ATORVASTATIN 40 MG TAB PO (20:56)
[2017-12-10] MEDS: ACCU-CHEK XX (01:43)
[2017-12-10] MEDS: HYDROCODONE/APAP (5/325) TAB PO ×3 (03:36→17:20)
[2017-12-10] MEDS: METOPROLOL (XL) 25 MG TAB PO (09:00)
[2017-12-10] MEDS: POLYETHYLENE GLYCOL 17 GM PACKET PO (09:00)
[2017-12-10] MEDS: LISINOPRIL 20 MG TAB PO (09:02)
[2017-12-10] MEDS: metFORMIN 500 MG TAB PO ×2 (09:03→17:20)
[2017-12-10] MEDS: LINAGLIPTIN 5 MG TABLET PO ×2 (09:11→17:38)
[2017-12-10] MEDS: INSULIN ASPART [NOVOLOG] 3 ML PEN SC ×6 (09:15→17:23)
[2017-12-10] MEDS: RIVAROXABAN 20 MG TABLET PO (17:20)
[2017-12-11] MEDS ORDERED: AMLODIPINE 5 MG TAB PO (09:00)
== END 2017-12-10 19:00 | disposition home health service (06) | DRG 605 ==
LOC: MS4 12-07 14:50 → E/R 23:23 → PP2 12-01 05:18
DX: S70.02XA Contusion of left hip, initial encounter (principal); I48.0 Paroxysmal atrial fibrillation; I10 Essential (primary) hypertension; W01.0XXA Fall on same level from slipping, tripping and stumbling without subsequent striking against object, initial encounter; R00.1 Bradycardia, unspecified; E11.9 Type 2 diabetes mellitus without complications; Z79.02 Long term (current) use of antithrombotics/antiplatelets; Z86.73 Personal history of transient ischemic attack (TIA), and cerebral infarction without residual deficits; E78.5 Hyperlipidemia, unspecified; E66.9 Obesity, unspecified; Z68.32 Body mass index [BMI] 32.0-32.9, adult; Y92.000 Kitchen of unspecified non-institutional (private) residence as the place of occurrence of the external cause; M25.552 Pain in left hip
CPT/HCPCS: 36415; 73510; 80048; 80053; 81003; 82962; 83690; 83735; 84443; 84484; 85025; 85610; 85730; 87081; 93005; 96372; 96374; 97110; 97116; 97163; 97530; 99285-25; G0378

== ENCOUNTER 2018-04-09 19:37 | Inpatient (IN) | payer MEDICARE, OTHER ==
[2018-04-09 19:56] LABS: ADD MAN DIFF? NO
[2018-04-09 19:58] LABS: BASOPHIL # 0.1 10^3/ul (0.0-0.1); BASOPHILS % 0.5 % (0.0-2.0); EOSINOPHILS # 0.1 10^3/ul (0.0-0.5); EOSINOPHILS % 1.3 % (0.0-7.0); HEMATOCRIT 41.3 % (37.0-47.0); HEMOGLOBIN 12.7 g/dl (12.0-16.0); LYMPHOCYTES # 4.2 10^3/ul (0.8-2.9); LYMPHOCYTES % 37.6 % (15.0-51.0); MEAN CORPUSCULAR HEMOGLOBIN 26.8 pg (29.0-33.0); MEAN CORPUSCULAR HGB CONC 30.8 g/dl (32.0-37.0); MEAN CORPUSCULAR VOLUME 87.3 fl (82.0-101.0); MEAN PLATELET VOLUME 11.1 fl (7.4-10.4); MONOCYTE # 0.7 10^3/ul (0.3-0.9); MONOCYTES % 6.1 % (0.0-11.0); NEUTROPHILS % 54.1 % (39.0-77.0); PLATELET COUNT 276 10^3/UL (140-415); RED BLOOD COUNT 4.73 10^6/ul (4.20-5.40); RED CELL DISTRIBUTION WIDTH 13.6 % (11.5-14.5)
[2018-04-09 19:58] LABS: WHITE BLOOD COUNT 11.2 10^3/ul (4.8-10.8)
[2018-04-09] MEDS ORDERED: NITROGLYCERIN 50 MG/D5W (PMX) 250 ML IV (20:00)
[2018-04-09] MEDS: ENALAPRILAT 1.25 MG INJ IV (20:02)
[2018-04-09] MEDS: FUROSEMIDE 40 MG INJ IV (20:02)
[2018-04-09] MEDS: ASPIRIN 81 MG TAB PO (20:03)
[2018-04-09 20:06] LABS: INR 1.05; PROTIME 13.8 Sec (11.9-14.9); PT RATIO 1.1
[2018-04-09 20:07] LABS: PARTIAL THROMBOPLASTIN TIME 30.2 Sec (25.0-35.0)
[2018-04-09 20:09] LABS: ALANINE AMINOTRANSFERASE 99 IU/L (13-69); ALBUMIN 4.2 g/dl (3.3-4.9); ALBUMIN/GLOBULIN RATIO 1.35; ALKALINE PHOSPHATASE 120 IU/L (42-121); ANION GAP 14 (8-16); ASPARTATE AMINO TRANSFERASE 50 IU/L (15-46); BILIRUBIN,INDIRECT 0.2 mg/dl (0-1.1); BILIRUBIN,TOTAL 0.2 mg/dl (0.2-1.3); BLOOD UREA NITROGEN 22 mg/dl (7-20); CALCIUM 9.7 mg/dl (8.4-10.2); CARBON DIOXIDE 27 mmol/L (21-31); CHLORIDE 108 mmol/L (97-110); CREATININE 0.63 mg/dl (0.44-1.00); GLUCOSE 323 mg/dl (70-220); LIPASE 80 U/L (23-300); POTASSIUM 5.3 mmol/L (3.5-5.1); SODIUM 144 mmol/L (135-144); TOTAL PROTEIN 7.3 g/dl (6.1-8.1)
[2018-04-09 20:20] LABS: B-TYPE NATRIURETIC PEPTIDE 1110 PG/ML (0-125)
[2018-04-09 20:21] LABS: TROPONIN-I < 0.012 ng/ml (0.000-0.120)
[2018-04-10] MEDS ORDERED: ACETAMINOPHEN 325 MG TAB PO (01:30)
[2018-04-10] MEDS: ACCU-CHEK XX (02:00)
[2018-04-10] MEDS ORDERED: GLUCOSE GEL 15 GRAM TUBE PO ×2 (03:00)
[2018-04-10] MEDS ORDERED: DEXTROSE 50% 50 ML SYRINGE IV ×2 (03:00)
[2018-04-10] MEDS ORDERED: GLUCOSE GEL 15 GRAM TUBE BUCCAL (03:00)
[2018-04-10] MEDS ORDERED: GLUCAGON 1 MG INJ IM (03:00)
[2018-04-10] MEDS ORDERED: FUROSEMIDE 40 MG INJ IV (06:00)
[2018-04-10] MEDS: FUROSEMIDE 20 MG TAB PO (07:37)
[2018-04-10] MEDS: ATENOLOL 25 MG TAB PO ×2 (08:47→09:00)
[2018-04-10] MEDS: INSULIN ASPART [NOVOLOG] 3 ML PEN SC ×8 (09:00→22:03)
[2018-04-10] MEDS: metFORMIN 500 MG TAB GTB ×2 (09:12→17:10)
[2018-04-10] MEDS: FUROSEMIDE 20 MG INJ IV ×2 (09:12→17:09)
[2018-04-10] MEDS ORDERED: INSULIN ASPART [NOVOLOG] 3 ML PEN SC (11:50)
[2018-04-10 12:15] LABS: B-TYPE NATRIURETIC PEPTIDE 3840 PG/ML (0-125)
[2018-04-10 12:15] LABS: TROPONIN-I 0.056 ng/ml (0.000-0.120)
[2018-04-10] MEDS: LINAGLIPTIN 5 MG TABLET PO (17:10)
[2018-04-10] MEDS ORDERED: LINAGLIPTIN 5 MG TABLET PO (17:55)
[2018-04-10] MEDS: RIVAROXABAN 20 MG TABLET PO (21:26)
[2018-04-10] MEDS: INSULIN GLARGINE [LANtus] 3 ML PEN SC (22:03)
[2018-04-11] MEDS: ACCU-CHEK XX (03:50)
[2018-04-11] MEDS: FUROSEMIDE 20 MG INJ IV ×2 (05:42→17:53)
[2018-04-11 07:20] LABS: ADD MAN DIFF? NO
[2018-04-11 07:26] LABS: WHITE BLOOD COUNT 6.8 10^3/ul (4.8-10.8)
[2018-04-11 07:26] LABS: BASOPHILS % 0.6 % (0.0-2.0); EOSINOPHILS # 0.1 10^3/ul (0.0-0.5); EOSINOPHILS % 1.6 % (0.0-7.0); HEMATOCRIT 36.3 % (37.0-47.0); HEMOGLOBIN 11.4 g/dl (12.0-16.0); LYMPHOCYTES # 2.8 10^3/ul (0.8-2.9); LYMPHOCYTES % 41.9 % (15.0-51.0); MEAN CORPUSCULAR HEMOGLOBIN 27.3 pg (29.0-33.0); MEAN CORPUSCULAR HGB CONC 31.4 g/dl (32.0-37.0); MEAN CORPUSCULAR VOLUME 87.1 fl (82.0-101.0); MONOCYTE # 0.6 10^3/ul (0.3-0.9); MONOCYTES % 9.3 % (0.0-11.0); NEUTROPHIL # 3.1 10^3/ul (1.6-7.5); NEUTROPHILS % 46.3 % (39.0-77.0); PLATELET COUNT 230 10^3/UL (140-415); RED BLOOD COUNT 4.17 10^6/ul (4.20-5.40); RED CELL DISTRIBUTION WIDTH 13.8 % (11.5-14.5)
[2018-04-11 07:53] LABS: ANION GAP 11 (8-16); BLOOD UREA NITROGEN 26 mg/dl (7-20); CALCIUM 9.4 mg/dl (8.4-10.2); CARBON DIOXIDE 32 mmol/L (21-31); CHLORIDE 106 mmol/L (97-110); CREATININE 0.63 mg/dl (0.44-1.00); GLUCOSE 163 mg/dl (70-220); POTASSIUM 4.1 mmol/L (3.5-5.1); SODIUM 145 mmol/L (135-144)
[2018-04-11] MEDS: ATENOLOL 25 MG TAB PO (08:08)
[2018-04-11] MEDS: LISINOPRIL 5 MG TAB PO (08:08)
[2018-04-11] MEDS: ASPIRIN (EC) 325 MG TAB PO (08:08)
[2018-04-11] MEDS: metFORMIN 500 MG TAB GTB ×2 (08:09→17:53)
[2018-04-11] MEDS: INSULIN ASPART [NOVOLOG] 3 ML PEN SC ×7 (08:18→20:19)
[2018-04-11] MEDS: LINAGLIPTIN 5 MG TABLET PO (17:54)
[2018-04-11] MEDS: RIVAROXABAN 20 MG TABLET PO (17:54)
[2018-04-11] MEDS ORDERED: RIVAROXABAN 20 MG TABLET PO (17:55)
[2018-04-11] MEDS: INSULIN GLARGINE [LANtus] 3 ML PEN SC (20:26)
[2018-04-12] MEDS: ACCU-CHEK XX (02:00)
[2018-04-12] MEDS: FUROSEMIDE 20 MG INJ IV ×2 (06:41→17:28)
[2018-04-12] MEDS: metFORMIN 500 MG TAB GTB ×2 (08:30→17:27)
[2018-04-12] MEDS: ASPIRIN (EC) 81 MG TAB PO (08:31)
[2018-04-12] MEDS: SPIRONOLACTONE 25 MG TAB PO (08:31)
[2018-04-12] MEDS: METOPROLOL (XL) 25 MG TAB PO (08:33)
[2018-04-12] MEDS: LISINOPRIL 5 MG TAB PO (08:34)
[2018-04-12] MEDS: INSULIN ASPART [NOVOLOG] 3 ML PEN SC ×7 (09:09→20:19)
[2018-04-12 10:46] LABS: ADD MAN DIFF? NO
[2018-04-12 10:48] LABS: WHITE BLOOD COUNT 7.5 10^3/ul (4.8-10.8)
[2018-04-12 10:48] LABS: BASOPHILS % 0.4 % (0.0-2.0); EOSINOPHILS # 0.1 10^3/ul (0.0-0.5); EOSINOPHILS % 1.1 % (0.0-7.0); HEMATOCRIT 36.6 % (37.0-47.0); HEMOGLOBIN 11.2 g/dl (12.0-16.0); LYMPHOCYTES # 2.1 10^3/ul (0.8-2.9); LYMPHOCYTES % 28.5 % (15.0-51.0); MEAN CORPUSCULAR HEMOGLOBIN 26.7 pg (29.0-33.0); MEAN CORPUSCULAR HGB CONC 30.6 g/dl (32.0-37.0); MEAN CORPUSCULAR VOLUME 87.1 fl (82.0-101.0); MEAN PLATELET VOLUME 10.8 fl (7.4-10.4); MONOCYTE # 0.6 10^3/ul (0.3-0.9); MONOCYTES % 7.8 % (0.0-11.0); NEUTROPHIL # 4.6 10^3/ul (1.6-7.5); NEUTROPHILS % 61.8 % (39.0-77.0); PLATELET COUNT 229 10^3/UL (140-415); RED CELL DISTRIBUTION WIDTH 13.7 % (11.5-14.5)
[2018-04-12 11:11] LABS: ANION GAP 12 (8-16); BLOOD UREA NITROGEN 25 mg/dl (7-20); CALCIUM 9.7 mg/dl (8.4-10.2); CARBON DIOXIDE 29 mmol/L (21-31); CHLORIDE 104 mmol/L (97-110); CREATININE 0.63 mg/dl (0.44-1.00); GLUCOSE 212 mg/dl (70-220); POTASSIUM 4.3 mmol/L (3.5-5.1); SODIUM 141 mmol/L (135-144)
[2018-04-12] MEDS: RIVAROXABAN 20 MG TABLET PO (17:27)
[2018-04-12] MEDS: LINAGLIPTIN 5 MG TABLET PO (17:27)
[2018-04-12] MEDS: INSULIN GLARGINE [LANtus] 3 ML PEN SC (20:07)
[2018-04-12] MEDS: NIFEdipine (XL) 30 MG TAB PO (20:19)
[2018-04-12] MEDS ORDERED: LINAGLIPTIN PO (21:00)
[2018-04-12] MEDS ORDERED: [UNRECOGNIZED DRUG - OTHER] PO (21:00)
[2018-04-12] MEDS ORDERED: METFORMIN HCL PO (21:00)
[2018-04-13] MEDS: ACCU-CHEK XX ×2 (02:02→21:28)
[2018-04-13] MEDS: FUROSEMIDE 20 MG INJ IV (06:17)
[2018-04-13] MEDS: INSULIN ASPART [NOVOLOG] 3 ML PEN SC ×7 (07:55→21:00)
[2018-04-13] MEDS: metFORMIN 500 MG TAB GTB ×2 (08:16→17:54)
[2018-04-13] MEDS: METOPROLOL (XL) 25 MG TAB PO (08:17)
[2018-04-13] MEDS: ASPIRIN (EC) 81 MG TAB PO (08:17)
[2018-04-13] MEDS: LISINOPRIL 5 MG TAB PO (08:17)
[2018-04-13] MEDS: NIFEdipine (XL) 30 MG TAB PO ×2 (08:17→21:23)
[2018-04-13] MEDS: SPIRONOLACTONE 25 MG TAB PO (08:18)
[2018-04-13 09:40] LABS: ADD MAN DIFF? NO
[2018-04-13 09:44] LABS: WHITE BLOOD COUNT 6.5 10^3/ul (4.8-10.8)
[2018-04-13 09:44] LABS: BASOPHILS % 0.5 % (0.0-2.0); EOSINOPHILS # 0.1 10^3/ul (0.0-0.5); EOSINOPHILS % 1.2 % (0.0-7.0); HEMATOCRIT 35.6 % (37.0-47.0); HEMOGLOBIN 11.3 g/dl (12.0-16.0); LYMPHOCYTES % 30.6 % (15.0-51.0); MEAN CORPUSCULAR HEMOGLOBIN 27.4 pg (29.0-33.0); MEAN CORPUSCULAR HGB CONC 31.7 g/dl (32.0-37.0); MEAN CORPUSCULAR VOLUME 86.2 fl (82.0-101.0); MONOCYTE # 0.5 10^3/ul (0.3-0.9); MONOCYTES % 7.7 % (0.0-11.0); NEUTROPHIL # 3.9 10^3/ul (1.6-7.5); NEUTROPHILS % 59.7 % (39.0-77.0); PLATELET COUNT 220 10^3/UL (140-415); RED BLOOD COUNT 4.13 10^6/ul (4.20-5.40); RED CELL DISTRIBUTION WIDTH 13.5 % (11.5-14.5)
[2018-04-13 10:20] LABS: ANION GAP 10 (8-16); BLOOD UREA NITROGEN 24 mg/dl (7-20); CALCIUM 9.4 mg/dl (8.4-10.2); CARBON DIOXIDE 31 mmol/L (21-31); CHLORIDE 104 mmol/L (97-110); CREATININE 0.65 mg/dl (0.44-1.00); GLUCOSE 196 mg/dl (70-220); MAGNESIUM 1.4 mg/dl (1.7-2.5); PHOSPHORUS 4.3 mg/dl (2.5-4.9); POTASSIUM 4.4 mmol/L (3.5-5.1); SODIUM 141 mmol/L (135-144)
[2018-04-13] MEDS: LINAGLIPTIN 5 MG TABLET PO (17:53)
[2018-04-13] MEDS: RIVAROXABAN 20 MG TABLET PO (17:53)
[2018-04-13] MEDS: FUROSEMIDE 40 MG INJ IV (17:55)
[2018-04-13] MEDS ORDERED: MAGNESIUM SULFATE 2 GM/50 ML 50 ML IVPB (20:00)
[2018-04-13] MEDS: INSULIN GLARGINE [LANtus] 3 ML PEN SC (21:40)
[2018-04-14] MEDS: FUROSEMIDE 40 MG INJ IV ×2 (07:03→17:26)
[2018-04-14] MEDS: metFORMIN 500 MG TAB GTB ×2 (08:20→17:25)
[2018-04-14] MEDS: ASPIRIN (EC) 81 MG TAB PO (08:20)
[2018-04-14] MEDS: LISINOPRIL 10 MG TAB PO (08:21)
[2018-04-14] MEDS: NIFEdipine (XL) 30 MG TAB PO ×2 (08:21→21:40)
[2018-04-14] MEDS: METOPROLOL (XL) 25 MG TAB PO (08:22)
[2018-04-14] MEDS: SPIRONOLACTONE 25 MG TAB PO (08:22)
[2018-04-14] MEDS: INSULIN ASPART [NOVOLOG] 3 ML PEN SC ×7 (08:26→21:48)
[2018-04-14 11:51] LABS: ANION GAP 14 (8-16); BLOOD UREA NITROGEN 22 mg/dl (7-20); CARBON DIOXIDE 30 mmol/L (21-31); CHLORIDE 103 mmol/L (97-110); CREATININE 0.67 mg/dl (0.44-1.00); GLUCOSE 194 mg/dl (70-220); POTASSIUM 4.7 mmol/L (3.5-5.1); SODIUM 142 mmol/L (135-144)
[2018-04-14] MEDS: LINAGLIPTIN 5 MG TABLET PO (17:25)
[2018-04-14] MEDS: INSULIN GLARGINE [LANtus] 3 ML PEN SC (21:47)
[2018-04-15] MEDS: ACCU-CHEK XX (02:00)
[2018-04-15] MEDS: FUROSEMIDE 40 MG INJ IV ×2 (06:38→18:12)
[2018-04-15] MEDS: INSULIN ASPART [NOVOLOG] 3 ML PEN SC ×7 (07:55→20:33)
[2018-04-15] MEDS: metFORMIN 500 MG TAB GTB (08:58)
[2018-04-15] MEDS: ASPIRIN (EC) 81 MG TAB PO ×2 (09:00→09:02)
[2018-04-15] MEDS: NIFEdipine (XL) 30 MG TAB PO ×2 (09:00→20:31)
[2018-04-15] MEDS: METOPROLOL (XL) 25 MG TAB PO (09:01)
[2018-04-15] MEDS: LISINOPRIL 10 MG TAB PO (09:01)
[2018-04-15] MEDS: SPIRONOLACTONE 25 MG TAB PO (09:02)
[2018-04-15] MEDS: DIAZEPAM 5 MG TAB PO (09:49)
[2018-04-15] MEDS: DIPHENHYDRAMINE 50 MG CAP PO (09:49)
[2018-04-15 10:01] LABS: AADO2 Arterial 41.4 mmHg (7.0-24.0); Allen Test ACCEPTAB; Arterial Base Excess 4.1 mmol/L (-3.0-3); Arterial Blood Gas Oxygen Sat 93.9 mmHG (95.0-98.0); Arterial COHb 0.5 % (0.0-3.0); Arterial Fraction of Oxyhgb 93.1 % (93.0-99.0); Arterial HCO3 27.1 mmol/L (22.0-26.0); Arterial MetHb 0.3 % (0.0-1.5); Arterial Total Hemglobin 13.6 g/dl (12.0-18.0); Arterial pCO2 35.6 mmhg (35-45); MODE ROOM AIR; Site Right Radial
[2018-04-15] MEDS ORDERED: HEPARIN 1000 UNITS/ML 10 ML INJ (10:34)
[2018-04-15] MEDS ORDERED: LIDOCAINE 1% (MDV) 20 ML INJ (10:34)
[2018-04-15] MEDS ORDERED: IODIXANOL LOCM 100 ML BTL (10:34)
[2018-04-15] MEDS ORDERED: VERAPAMIL 5 MG INJ (10:35)
[2018-04-15] MEDS ORDERED: MIDAZOLAM 1 MG/ML 2 ML INJ (10:35)
[2018-04-15] MEDS ORDERED: FENTAnyl 50 MCG/ML VIAL (10:35)
[2018-04-15] MEDS ORDERED: SOD CHLORIDE 0.9% 500 ML (10:35)
[2018-04-15] MEDS ORDERED: NITROGLYCERIN (IC) 100 MCG/ML INJ (10:35)
[2018-04-15] MEDS ORDERED: ONDANSETRON 4 MG INJ IV (11:30)
[2018-04-15] MEDS ORDERED: ACETAMINOPHEN 325 MG TAB PO (11:30)
[2018-04-15] MEDS: SOD CHLORIDE 0.9% 1,000 ML IV (12:00)
[2018-04-15 14:25] LABS: ADD MAN DIFF? NO
[2018-04-15 14:26] LABS: BASOPHIL # 0.1 10^3/ul (0.0-0.1); BASOPHILS % 0.6 % (0.0-2.0); EOSINOPHILS # 0.1 10^3/ul (0.0-0.5); EOSINOPHILS % 1.4 % (0.0-7.0); HEMATOCRIT 42.1 % (37.0-47.0); HEMOGLOBIN 13.1 g/dl (12.0-16.0); LYMPHOCYTES # 3.3 10^3/ul (0.8-2.9); LYMPHOCYTES % 41.9 % (15.0-51.0); MEAN CORPUSCULAR HEMOGLOBIN 26.9 pg (29.0-33.0); MEAN CORPUSCULAR HGB CONC 31.1 g/dl (32.0-37.0); MEAN CORPUSCULAR VOLUME 86.4 fl (82.0-101.0); MEAN PLATELET VOLUME 10.2 fl (7.4-10.4); MONOCYTE # 0.6 10^3/ul (0.3-0.9); MONOCYTES % 8.1 % (0.0-11.0); NEUTROPHIL # 3.7 10^3/ul (1.6-7.5); NEUTROPHILS % 47.6 % (39.0-77.0); PLATELET COUNT 276 10^3/UL (140-415); RED BLOOD COUNT 4.87 10^6/ul (4.20-5.40); RED CELL DISTRIBUTION WIDTH 13.6 % (11.5-14.5)
[2018-04-15 14:26] LABS: WHITE BLOOD COUNT 7.8 10^3/ul (4.8-10.8)
[2018-04-15 15:05] LABS: ANION GAP 15 (8-16); BLOOD UREA NITROGEN 21 mg/dl (7-20); CALCIUM 9.7 mg/dl (8.4-10.2); CARBON DIOXIDE 28 mmol/L (21-31); CHLORIDE 106 mmol/L (97-110); CREATININE 0.64 mg/dl (0.44-1.00); GLUCOSE 122 mg/dl (70-220); POTASSIUM 4.3 mmol/L (3.5-5.1); SODIUM 145 mmol/L (135-144)
[2018-04-15 15:09] LABS: INR 1.01; PROTIME 13.4 Sec (11.9-14.9)
[2018-04-15] MEDS: LINAGLIPTIN 5 MG TABLET PO (18:12)
[2018-04-15] MEDS: INSULIN GLARGINE [LANtus] 3 ML PEN SC (20:30)
[2018-04-16] MEDS: ACCU-CHEK XX (02:35)
[2018-04-16] MEDS: NIFEdipine (XL) 30 MG TAB PO ×2 (08:11→20:13)
[2018-04-16] MEDS: ASPIRIN (EC) 81 MG TAB PO (08:11)
[2018-04-16] MEDS: LISINOPRIL 10 MG TAB PO (08:12)
[2018-04-16] MEDS: METOPROLOL (XL) 25 MG TAB PO (08:12)
[2018-04-16] MEDS: SPIRONOLACTONE 25 MG TAB PO (08:13)
[2018-04-16] MEDS: FUROSEMIDE 40 MG INJ IV ×2 (08:13→17:06)
[2018-04-16] MEDS: INSULIN ASPART [NOVOLOG] 3 ML PEN SC ×7 (08:16→20:23)
[2018-04-16 09:54] LABS: ADD MAN DIFF? NO
[2018-04-16 09:56] LABS: WHITE BLOOD COUNT 7.9 10^3/ul (4.8-10.8)
[2018-04-16 09:56] LABS: BASOPHILS % 0.5 % (0.0-2.0); EOSINOPHILS # 0.2 10^3/ul (0.0-0.5); EOSINOPHILS % 1.9 % (0.0-7.0); HEMATOCRIT 40.8 % (37.0-47.0); HEMOGLOBIN 12.7 g/dl (12.0-16.0); LYMPHOCYTES # 2.7 10^3/ul (0.8-2.9); LYMPHOCYTES % 34.3 % (15.0-51.0); MEAN CORPUSCULAR HEMOGLOBIN 26.9 pg (29.0-33.0); MEAN CORPUSCULAR HGB CONC 31.1 g/dl (32.0-37.0); MEAN CORPUSCULAR VOLUME 86.4 fl (82.0-101.0); MEAN PLATELET VOLUME 10.1 fl (7.4-10.4); MONOCYTE # 0.6 10^3/ul (0.3-0.9); MONOCYTES % 8.1 % (0.0-11.0); NEUTROPHIL # 4.4 10^3/ul (1.6-7.5); NEUTROPHILS % 54.8 % (39.0-77.0); PLATELET COUNT 281 10^3/UL (140-415); RED BLOOD COUNT 4.72 10^6/ul (4.20-5.40); RED CELL DISTRIBUTION WIDTH 13.7 % (11.5-14.5)
[2018-04-16 10:23] LABS: ANION GAP 16 (8-16); BLOOD UREA NITROGEN 27 mg/dl (7-20); CALCIUM 9.9 mg/dl (8.4-10.2); CARBON DIOXIDE 31 mmol/L (21-31); CHLORIDE 101 mmol/L (97-110); CREATININE 0.74 mg/dl (0.44-1.00); GLUCOSE 215 mg/dl (70-220); POTASSIUM 4.4 mmol/L (3.5-5.1); SODIUM 144 mmol/L (135-144)
[2018-04-16] MEDS: LINAGLIPTIN 5 MG TABLET PO (17:06)
[2018-04-16] MEDS: INSULIN GLARGINE [LANtus] 3 ML PEN SC (20:16)
[2018-04-17] MEDS: ACCU-CHEK XX (02:16)
[2018-04-17] MEDS: FUROSEMIDE 40 MG INJ IV ×2 (06:34→17:05)
[2018-04-17] MEDS: NIFEdipine (XL) 30 MG TAB PO ×2 (08:15→21:02)
[2018-04-17] MEDS: LISINOPRIL 10 MG TAB PO (08:16)
[2018-04-17] MEDS: METOPROLOL (XL) 25 MG TAB PO (08:16)
[2018-04-17] MEDS: SPIRONOLACTONE 25 MG TAB PO (08:16)
[2018-04-17] MEDS: INSULIN ASPART [NOVOLOG] 3 ML PEN SC ×7 (08:22→21:12)
[2018-04-17] MEDS: ASPIRIN (EC) 81 MG TAB PO (08:23)
[2018-04-17] MEDS: LINAGLIPTIN 5 MG TABLET PO (17:01)
[2018-04-17] MEDS: INSULIN GLARGINE [LANtus] 3 ML PEN SC (21:12)
[2018-04-18] MEDS: ACCU-CHEK XX (02:00)
[2018-04-18] MEDS: FUROSEMIDE 40 MG INJ IV ×3 (05:46→17:18)
[2018-04-18] MEDS: ASPIRIN (EC) 81 MG TAB PO (07:45)
[2018-04-18] MEDS: LISINOPRIL 10 MG TAB PO (07:46)
[2018-04-18] MEDS: METOPROLOL (XL) 25 MG TAB PO (07:46)
[2018-04-18] MEDS: NIFEdipine (XL) 30 MG TAB PO ×2 (07:47→20:43)
[2018-04-18] MEDS: SPIRONOLACTONE 25 MG TAB PO (07:47)
[2018-04-18] MEDS: INSULIN ASPART [NOVOLOG] 3 ML PEN SC ×7 (07:52→20:30)
[2018-04-18 10:51] LABS: ADD MAN DIFF? NO
[2018-04-18 10:54] LABS: BASOPHIL # 0.1 10^3/ul (0.0-0.1); BASOPHILS % 0.8 % (0.0-2.0); EOSINOPHILS # 0.1 10^3/ul (0.0-0.5); EOSINOPHILS % 1.9 % (0.0-7.0); HEMATOCRIT 39.6 % (37.0-47.0); HEMOGLOBIN 12.3 g/dl (12.0-16.0); LYMPHOCYTES # 2.9 10^3/ul (0.8-2.9); MEAN CORPUSCULAR HEMOGLOBIN 26.9 pg (29.0-33.0); MEAN CORPUSCULAR HGB CONC 31.1 g/dl (32.0-37.0); MEAN CORPUSCULAR VOLUME 86.5 fl (82.0-101.0); MEAN PLATELET VOLUME 10.8 fl (7.4-10.4); MONOCYTE # 0.5 10^3/ul (0.3-0.9); MONOCYTES % 7.4 % (0.0-11.0); NEUTROPHIL # 3.6 10^3/ul (1.6-7.5); NEUTROPHILS % 49.5 % (39.0-77.0); PLATELET COUNT 293 10^3/UL (140-415); RED BLOOD COUNT 4.58 10^6/ul (4.20-5.40); RED CELL DISTRIBUTION WIDTH 13.6 % (11.5-14.5)
[2018-04-18 10:54] LABS: WHITE BLOOD COUNT 7.3 10^3/ul (4.8-10.8)
[2018-04-18 11:24] LABS: ANION GAP 16 (8-16); BLOOD UREA NITROGEN 30 mg/dl (7-20); CALCIUM 9.4 mg/dl (8.4-10.2); CARBON DIOXIDE 32 mmol/L (21-31); CHLORIDE 97 mmol/L (97-110); CREATININE 0.83 mg/dl (0.44-1.00); GLUCOSE 223 mg/dl (70-220); POTASSIUM 4.1 mmol/L (3.5-5.1); SODIUM 141 mmol/L (135-144)
[2018-04-18] MEDS: LINAGLIPTIN 5 MG TABLET PO (17:18)
[2018-04-18] MEDS: RIVAROXABAN 20 MG TABLET PO (17:19)
[2018-04-18] MEDS: INSULIN GLARGINE [LANtus] 3 ML PEN SC (20:30)
[2018-04-19] MEDS: ACCU-CHEK XX (03:37)
[2018-04-19] MEDS: FUROSEMIDE 40 MG INJ IV ×2 (05:52→18:05)
[2018-04-19 08:03] LABS: ADD MAN DIFF? NO
[2018-04-19 08:12] LABS: BASOPHILS % 0.6 % (0.0-2.0); EOSINOPHILS # 0.1 10^3/ul (0.0-0.5); EOSINOPHILS % 1.4 % (0.0-7.0); HEMATOCRIT 41.3 % (37.0-47.0); HEMOGLOBIN 12.9 g/dl (12.0-16.0); LYMPHOCYTES # 2.8 10^3/ul (0.8-2.9); LYMPHOCYTES % 42.7 % (15.0-51.0); MEAN CORPUSCULAR HEMOGLOBIN 27.3 pg (29.0-33.0); MEAN CORPUSCULAR HGB CONC 31.2 g/dl (32.0-37.0); MEAN CORPUSCULAR VOLUME 87.3 fl (82.0-101.0); MEAN PLATELET VOLUME 10.5 fl (7.4-10.4); MONOCYTE # 0.6 10^3/ul (0.3-0.9); MONOCYTES % 9.4 % (0.0-11.0); NEUTROPHIL # 2.9 10^3/ul (1.6-7.5); NEUTROPHILS % 45.4 % (39.0-77.0); PLATELET COUNT 292 10^3/UL (140-415); RED BLOOD COUNT 4.73 10^6/ul (4.20-5.40); RED CELL DISTRIBUTION WIDTH 13.6 % (11.5-14.5)
[2018-04-19 08:12] LABS: WHITE BLOOD COUNT 6.5 10^3/ul (4.8-10.8)
[2018-04-19] MEDS: INSULIN ASPART [NOVOLOG] 3 ML PEN SC ×7 (08:33→20:23)
[2018-04-19 08:45] LABS: ANION GAP 16 (8-16); BLOOD UREA NITROGEN 37 mg/dl (7-20); CALCIUM 9.6 mg/dl (8.4-10.2); CARBON DIOXIDE 33 mmol/L (21-31); CHLORIDE 100 mmol/L (97-110); CREATININE 0.82 mg/dl (0.44-1.00); GLUCOSE 193 mg/dl (70-220); POTASSIUM 4.1 mmol/L (3.5-5.1); SODIUM 145 mmol/L (135-144)
[2018-04-19] MEDS: ASPIRIN (EC) 81 MG TAB PO (08:45)
[2018-04-19] MEDS: SPIRONOLACTONE 25 MG TAB PO (08:45)
[2018-04-19] MEDS: METOPROLOL (XL) 25 MG TAB PO (08:46)
[2018-04-19] MEDS: LISINOPRIL 10 MG TAB PO (08:46)
[2018-04-19] MEDS: NIFEdipine (XL) 30 MG TAB PO ×2 (08:48→20:11)
[2018-04-19] MEDS: RIVAROXABAN 20 MG TABLET PO (17:35)
[2018-04-19] MEDS: LINAGLIPTIN 5 MG TABLET PO (17:35)
[2018-04-19] MEDS: DOCUSATE SODIUM 100 MG CAP PO (20:11)
[2018-04-19] MEDS: INSULIN GLARGINE [LANtus] 3 ML PEN SC (21:18)
[2018-04-20] MEDS: ACCU-CHEK XX (02:25)
[2018-04-20] MEDS: FUROSEMIDE 40 MG INJ IV (05:59)
[2018-04-20 07:36] LABS: ADD MAN DIFF? NO
[2018-04-20 07:37] LABS: WHITE BLOOD COUNT 6.6 10^3/ul (4.8-10.8)
[2018-04-20 07:37] LABS: HEMATOCRIT 38.4 % (37.0-47.0); HEMOGLOBIN 12.1 g/dl (12.0-16.0); MEAN CORPUSCULAR HEMOGLOBIN 26.9 pg (29.0-33.0); MEAN CORPUSCULAR HGB CONC 31.5 g/dl (32.0-37.0); MEAN CORPUSCULAR VOLUME 85.5 fl (82.0-101.0); RED BLOOD COUNT 4.49 10^6/ul (4.20-5.40)
[2018-04-20 07:38] LABS: BASOPHIL # 0.1 10^3/ul (0.0-0.1); BASOPHILS % 0.9 % (0.0-2.0); EOSINOPHILS # 0.1 10^3/ul (0.0-0.5); EOSINOPHILS % 1.2 % (0.0-7.0); LYMPHOCYTES # 2.6 10^3/ul (0.8-2.9); LYMPHOCYTES % 40.1 % (15.0-51.0); MEAN PLATELET VOLUME 10.6 fl (7.4-10.4); MONOCYTE # 0.7 10^3/ul (0.3-0.9); MONOCYTES % 9.9 % (0.0-11.0); NEUTROPHIL # 3.1 10^3/ul (1.6-7.5); NEUTROPHILS % 47.4 % (39.0-77.0); PLATELET COUNT 270 10^3/UL (140-415); RED CELL DISTRIBUTION WIDTH 13.9 % (11.5-14.5)
[2018-04-20] MEDS: INSULIN ASPART [NOVOLOG] 3 ML PEN SC ×7 (07:44→20:39)
[2018-04-20] MEDS: DOCUSATE SODIUM 100 MG CAP PO ×2 (08:02→20:26)
[2018-04-20] MEDS: SPIRONOLACTONE 25 MG TAB PO (08:03)
[2018-04-20] MEDS: ASPIRIN (EC) 81 MG TAB PO ×2 (08:04→08:06)
[2018-04-20] MEDS: METOPROLOL (XL) 25 MG TAB PO ×2 (08:04→20:26)
[2018-04-20] MEDS: NIFEdipine (XL) 30 MG TAB PO (08:04)
[2018-04-20] MEDS: LISINOPRIL 10 MG TAB PO (08:05)
[2018-04-20 11:45] LABS: ANION GAP 14 (8-16); BLOOD UREA NITROGEN 39 mg/dl (7-20); CALCIUM 9.5 mg/dl (8.4-10.2); CARBON DIOXIDE 30 mmol/L (21-31); CHLORIDE 105 mmol/L (97-110); CREATININE 0.79 mg/dl (0.44-1.00); GLUCOSE 219 mg/dl (70-220); POTASSIUM 4.4 mmol/L (3.5-5.1); SODIUM 145 mmol/L (135-144)
[2018-04-20] MEDS: DIGOXIN 500 MCG INJ IV ×2 (14:45→20:25)
[2018-04-20] MEDS: LINAGLIPTIN 5 MG TABLET PO (17:32)
[2018-04-20] MEDS: RIVAROXABAN 20 MG TABLET PO (17:32)
[2018-04-20] MEDS: FUROSEMIDE 40 MG TAB PO (17:33)
[2018-04-20] MEDS: INSULIN GLARGINE [LANtus] 3 ML PEN SC (20:40)
[2018-04-21] MEDS: DIGOXIN 500 MCG INJ IV (02:00)
[2018-04-21] MEDS: ACCU-CHEK XX (02:37)
[2018-04-21] MEDS: FUROSEMIDE 40 MG TAB PO ×2 (05:46→17:46)
[2018-04-21] MEDS: INSULIN ASPART [NOVOLOG] 3 ML PEN SC ×7 (07:39→20:13)
[2018-04-21] MEDS: SPIRONOLACTONE 25 MG TAB PO (08:51)
[2018-04-21] MEDS: METOPROLOL (XL) 25 MG TAB PO (08:52)
[2018-04-21] MEDS: DOCUSATE SODIUM 100 MG CAP PO ×2 (08:52→20:07)
[2018-04-21] MEDS: ASPIRIN (EC) 81 MG TAB PO (08:52)
[2018-04-21] MEDS: NIFEdipine (XL) 30 MG TAB PO (08:53)
[2018-04-21] MEDS: LISINOPRIL 10 MG TAB PO (08:53)
[2018-04-21 11:41] LABS: ADD MAN DIFF? NO
[2018-04-21 11:45] LABS: WHITE BLOOD COUNT 7.5 10^3/ul (4.8-10.8)
[2018-04-21 11:45] LABS: BASOPHILS % 0.5 % (0.0-2.0); EOSINOPHILS # 0.1 10^3/ul (0.0-0.5); EOSINOPHILS % 1.2 % (0.0-7.0); HEMATOCRIT 40.8 % (37.0-47.0); HEMOGLOBIN 12.7 g/dl (12.0-16.0); LYMPHOCYTES # 2.8 10^3/ul (0.8-2.9); LYMPHOCYTES % 36.5 % (15.0-51.0); MEAN CORPUSCULAR HGB CONC 31.1 g/dl (32.0-37.0); MEAN CORPUSCULAR VOLUME 86.6 fl (82.0-101.0); MEAN PLATELET VOLUME 10.4 fl (7.4-10.4); MONOCYTE # 0.7 10^3/ul (0.3-0.9); MONOCYTES % 8.9 % (0.0-11.0); NEUTROPHILS % 52.4 % (39.0-77.0); PLATELET COUNT 291 10^3/UL (140-415); RED BLOOD COUNT 4.71 10^6/ul (4.20-5.40); RED CELL DISTRIBUTION WIDTH 13.4 % (11.5-14.5)
[2018-04-21 12:28] LABS: ANION GAP 14 (8-16); BLOOD UREA NITROGEN 33 mg/dl (7-20); CALCIUM 9.9 mg/dl (8.4-10.2); CARBON DIOXIDE 30 mmol/L (21-31); CHLORIDE 106 mmol/L (97-110); CREATININE 0.81 mg/dl (0.44-1.00); GLUCOSE 127 mg/dl (70-220); POTASSIUM 4.8 mmol/L (3.5-5.1); SODIUM 145 mmol/L (135-144)
[2018-04-21] MEDS: RIVAROXABAN 20 MG TABLET PO (17:45)
[2018-04-21] MEDS: LINAGLIPTIN 5 MG TABLET PO (17:46)
[2018-04-21] MEDS: INSULIN GLARGINE [LANtus] 3 ML PEN SC (20:13)
[2018-04-21] MEDS: METOPROLOL (XL) 50 MG TAB PO (20:24)
[2018-04-22] MEDS: ACCU-CHEK XX (02:44)
[2018-04-22] MEDS: FUROSEMIDE 40 MG TAB PO (08:37)
[2018-04-22] MEDS: ASPIRIN (EC) 81 MG TAB PO (08:38)
[2018-04-22] MEDS: METOPROLOL (XL) 25 MG TAB PO (08:38)
[2018-04-22] MEDS: NIFEdipine (XL) 30 MG TAB PO (08:38)
[2018-04-22] MEDS: DOCUSATE SODIUM 100 MG CAP PO (08:38)
[2018-04-22] MEDS: LISINOPRIL 10 MG TAB PO (08:39)
[2018-04-22] MEDS: SPIRONOLACTONE 25 MG TAB PO (08:39)
[2018-04-22] MEDS: INSULIN ASPART [NOVOLOG] 3 ML PEN SC ×4 (08:41→12:04)
[2018-04-22 10:53] LABS: ADD MAN DIFF? NO
[2018-04-22 10:56] LABS: WHITE BLOOD COUNT 6.5 10^3/ul (4.8-10.8)
[2018-04-22 10:56] LABS: BASOPHIL # 0.1 10^3/ul (0.0-0.1); BASOPHILS % 0.8 % (0.0-2.0); EOSINOPHILS # 0.1 10^3/ul (0.0-0.5); EOSINOPHILS % 1.5 % (0.0-7.0); HEMATOCRIT 40.4 % (37.0-47.0); HEMOGLOBIN 12.6 g/dl (12.0-16.0); LYMPHOCYTES # 2.4 10^3/ul (0.8-2.9); LYMPHOCYTES % 36.1 % (15.0-51.0); MEAN CORPUSCULAR HEMOGLOBIN 27.2 pg (29.0-33.0); MEAN CORPUSCULAR HGB CONC 31.2 g/dl (32.0-37.0); MEAN CORPUSCULAR VOLUME 87.3 fl (82.0-101.0); MEAN PLATELET VOLUME 10.7 fl (7.4-10.4); MONOCYTE # 0.5 10^3/ul (0.3-0.9); MONOCYTES % 6.9 % (0.0-11.0); NEUTROPHIL # 3.5 10^3/ul (1.6-7.5); NEUTROPHILS % 54.1 % (39.0-77.0); PLATELET COUNT 274 10^3/UL (140-415); RED BLOOD COUNT 4.63 10^6/ul (4.20-5.40); RED CELL DISTRIBUTION WIDTH 13.7 % (11.5-14.5)
[2018-04-22 11:16] LABS: ANION GAP 17 (8-16); BLOOD UREA NITROGEN 30 mg/dl (7-20); CALCIUM 9.5 mg/dl (8.4-10.2); CARBON DIOXIDE 29 mmol/L (21-31); CHLORIDE 101 mmol/L (97-110); CREATININE 0.84 mg/dl (0.44-1.00); GLUCOSE 242 mg/dl (70-220); POTASSIUM 4.3 mmol/L (3.5-5.1); SODIUM 143 mmol/L (135-144)
== END 2018-04-22 16:44 | disposition home or self-care (01) | DRG 286 ==
LOC: E/R 19:37 → TEL 20:22
PROC: 4A023N7 Measurement of Cardiac Sampling and Pressure, Left Heart, Percutaneous Approach (ICD-10-PCS; principal; 2018-04-15 10:25)
PROC: B211YZZ Fluoroscopy of Multiple Coronary Arteries using Other Contrast (ICD-10-PCS; 2018-04-15 10:25)
PROC: B215YZZ Fluoroscopy of Left Heart using Other Contrast (ICD-10-PCS; 2018-04-15 10:25)
DX: I11.0 Hypertensive heart disease with heart failure (principal); J96.01 Acute respiratory failure with hypoxia; I16.1 Hypertensive emergency; I50.43 Acute on chronic combined systolic (congestive) and diastolic (congestive) heart failure; R60.0 Localized edema; I25.10 Atherosclerotic heart disease of native coronary artery without angina pectoris; I48.0 Paroxysmal atrial fibrillation; I42.9 Cardiomyopathy, unspecified; E11.9 Type 2 diabetes mellitus without complications; E78.5 Hyperlipidemia, unspecified; D64.9 Anemia, unspecified; Z96.643 Presence of artificial hip joint, bilateral; Z86.73 Personal history of transient ischemic attack (TIA), and cerebral infarction without residual deficits; Z79.01 Long term (current) use of anticoagulants; Z79.4 Long term (current) use of insulin
CPT/HCPCS: 36415; 36600; 71045; 80048; 80053; 82803; 82962; 83036; 83690; 83735; 83880; 84100; 84484; 85025; 85610; 85730; 93005; 93458; 93970; 94660; 96374; 96375; 99291-25

== ENCOUNTER 2018-05-16 21:10 | Emergency (ER) | payer MEDICARE, OTHER ==
[2018-05-16 21:30] LABS: ADD MAN DIFF? NO
[2018-05-16 21:33] LABS: BASOPHILS % 0.5 % (0.0-2.0); EOSINOPHILS # 0.1 10^3/ul (0.0-0.5); EOSINOPHILS % 1.2 % (0.0-7.0); HEMATOCRIT 37.1 % (37.0-47.0); HEMOGLOBIN 12.1 g/dl (12.0-16.0); LYMPHOCYTES # 3.2 10^3/ul (0.8-2.9); LYMPHOCYTES % 41.6 % (15.0-51.0); MEAN CORPUSCULAR HEMOGLOBIN 27.6 pg (29.0-33.0); MEAN CORPUSCULAR HGB CONC 32.6 g/dl (32.0-37.0); MEAN CORPUSCULAR VOLUME 84.5 fl (82.0-101.0); MEAN PLATELET VOLUME 11.3 fl (7.4-10.4); MONOCYTE # 0.6 10^3/ul (0.3-0.9); MONOCYTES % 7.6 % (0.0-11.0); NEUTROPHIL # 3.8 10^3/ul (1.6-7.5); NEUTROPHILS % 48.8 % (39.0-77.0); PLATELET COUNT 216 10^3/UL (140-415); RED BLOOD COUNT 4.39 10^6/ul (4.20-5.40); RED CELL DISTRIBUTION WIDTH 14.2 % (11.5-14.5)
[2018-05-16 21:33] LABS: WHITE BLOOD COUNT 7.8 10^3/ul (4.8-10.8)
[2018-05-16 21:56] LABS: ALANINE AMINOTRANSFERASE 73 IU/L (13-69); ALBUMIN 4.1 g/dl (3.3-4.9); ALBUMIN/GLOBULIN RATIO 1.24; ALKALINE PHOSPHATASE 94 IU/L (42-121); ANION GAP 14 (8-16); ASPARTATE AMINO TRANSFERASE 33 IU/L (15-46); BILIRUBIN,INDIRECT 0.3 mg/dl (0-1.1); BILIRUBIN,TOTAL 0.3 mg/dl (0.2-1.3); BLOOD UREA NITROGEN 30 mg/dl (7-20); CALCIUM 9.7 mg/dl (8.4-10.2); CARBON DIOXIDE 25 mmol/L (21-31); CHLORIDE 105 mmol/L (97-110); CREATININE 0.69 mg/dl (0.44-1.00); GLUCOSE 194 mg/dl (70-220); POTASSIUM 4.8 mmol/L (3.5-5.1); SODIUM 139 mmol/L (135-144); TOTAL PROTEIN 7.4 g/dl (6.1-8.1)
[2018-05-16 22:07] LABS: B-TYPE NATRIURETIC PEPTIDE 1720 PG/ML (0-125); TROPONIN-I 0.015 ng/ml (0.000-0.120)
[2018-05-16] MEDS: DILTIAZEM 25 MG INJ IV (22:30)
[2018-05-17 04:44] LABS: CREATINE KINASE 25 IU/L (23-200)
[2018-05-17 04:57] LABS: CK INDEX 1.3; CK-MB 0.32 ng/ml (0.0-2.4); TROPONIN-I 0.016 ng/ml (0.000-0.120)
[2018-05-17 10:07] LABS: CREATINE KINASE 28 IU/L (23-200)
[2018-05-17 10:19] LABS: CK INDEX 1.2; CK-MB 0.33 ng/ml (0.0-2.4); TROPONIN-I 0.012 ng/ml (0.000-0.120)
== END 2018-05-17 12:54 | disposition left against medical advice (07) ==
LOC: E/R 21:10
DX: R06.02 Shortness of breath (principal); I50.9 Heart failure, unspecified; I10 Essential (primary) hypertension; E11.9 Type 2 diabetes mellitus without complications; Z79.4 Long term (current) use of insulin; Z79.82 Long term (current) use of aspirin; Z96.643 Presence of artificial hip joint, bilateral; Z96.659 Presence of unspecified artificial knee joint
CPT/HCPCS: 36415; 71045; 80053; 82550; 82553; 82962; 83880; 84484; 85025; 93005; 96374; 99285-25

== ENCOUNTER 2018-06-22 16:49 | Observation (INO) | payer MEDICARE, OTHER ==
[2018-06-22 18:51] LABS: ADD MAN DIFF? NO
[2018-06-22 18:56] LABS: BASOPHILS % 0.3 % (0.0-2.0); EOSINOPHILS # 0.2 10^3/ul (0.0-0.5); EOSINOPHILS % 1.4 % (0.0-7.0); HEMATOCRIT 39.6 % (37.0-47.0); HEMOGLOBIN 12.8 g/dl (12.0-16.0); LYMPHOCYTES # 2.1 10^3/ul (0.8-2.9); LYMPHOCYTES % 15.9 % (15.0-51.0); MEAN CORPUSCULAR HEMOGLOBIN 27.1 pg (29.0-33.0); MEAN CORPUSCULAR HGB CONC 32.3 g/dl (32.0-37.0); MEAN CORPUSCULAR VOLUME 83.7 fl (82.0-101.0); MEAN PLATELET VOLUME 10.2 fl (7.4-10.4); MONOCYTES % 7.4 % (0.0-11.0); NEUTROPHIL # 9.9 10^3/ul (1.6-7.5); NEUTROPHILS % 74.6 % (39.0-77.0); PLATELET COUNT 213 10^3/UL (140-415); RED BLOOD COUNT 4.73 10^6/ul (4.20-5.40); RED CELL DISTRIBUTION WIDTH 14.7 % (11.5-14.5)
[2018-06-22 18:56] LABS: WHITE BLOOD COUNT 13.3 10^3/ul (4.8-10.8)
[2018-06-22] MEDS ORDERED: NITROGLYCERIN (SL) 0.4 MG TAB SL (19:00)
[2018-06-22 19:13] LABS: ANION GAP 13 (8-16); BLOOD UREA NITROGEN 20 mg/dl (7-20); CARBON DIOXIDE 26 mmol/L (21-31); CHLORIDE 102 mmol/L (97-110); CREATININE 0.74 mg/dl (0.44-1.00); GLUCOSE 218 mg/dl (70-220); POTASSIUM 4.2 mmol/L (3.5-5.1); SODIUM 137 mmol/L (135-144)
[2018-06-22] MEDS: NITROGLYCERIN 2% 1 GM OINT PKT TD (19:16)
[2018-06-22 19:24] LABS: TROPONIN-I < 0.012 ng/ml (0.000-0.120)
[2018-06-22] MEDS: ASPIRIN 81 MG TAB PO (19:24)
[2018-06-22] MEDS: METOPROLOL 5 MG INJ IV (19:24)
[2018-06-22] MEDS: FUROSEMIDE 40 MG INJ IV (19:25)
[2018-06-22] MEDS ORDERED: ACETAMINOPHEN 325 MG TAB PO (20:00)
[2018-06-22] MEDS ORDERED: ONDANSETRON 4 MG INJ IV (20:00)
[2018-06-22] MEDS: ACETAMINOPHEN 325 MG TAB PO (23:34)
[2018-06-22] MEDS: METOPROLOL (XL) 25 MG TAB PO (23:59)
[2018-06-23] MEDS: FUROSEMIDE 40 MG INJ IV ×2 (05:31→17:04)
[2018-06-23 07:22] LABS: ANION GAP 12 (8-16); BLOOD UREA NITROGEN 21 mg/dl (7-20); CALCIUM 9.5 mg/dl (8.4-10.2); CARBON DIOXIDE 30 mmol/L (21-31); CHLORIDE 102 mmol/L (97-110); CREATININE 0.77 mg/dl (0.44-1.00); GLUCOSE 213 mg/dl (70-220); POTASSIUM 3.5 mmol/L (3.5-5.1); SODIUM 140 mmol/L (135-144)
[2018-06-23 07:25] LABS: CREATINE KINASE 51 IU/L (23-200)
[2018-06-23 07:31] LABS: CK-MB 0.51 ng/ml (0.0-2.4); TROPONIN-I 0.015 ng/ml (0.000-0.120)
[2018-06-23] MEDS: INSULIN ASPART [NOVOLOG] 3 ML PEN SC ×7 (08:09→22:58)
[2018-06-23] MEDS: METOPROLOL (XL) 25 MG TAB PO (08:10)
[2018-06-23] MEDS: LISINOPRIL 10 MG TAB PO (08:10)
[2018-06-23] MEDS: SPIRONOLACTONE 25 MG TAB PO (08:11)
[2018-06-23] MEDS: POTASSIUM CHLORIDE (SR) 20 MEQ TAB PO (08:11)
[2018-06-23] MEDS: ASPIRIN (EC) 81 MG TAB PO (08:11)
[2018-06-23] MEDS ORDERED: METOPROLOL 5 MG INJ IV (13:00)
[2018-06-23] MEDS: RIVAROXABAN 20 MG TABLET PO (17:03)
[2018-06-23 18:08] LABS: ADD UMIC NO; UR ASCORBIC ACID NEGATIVE (NEGATIVE); UR BILIRUBIN (Dip) NEGATIVE (NEGATIVE); UR BLOOD (Dip) NEGATIVE (NEGATIVE); UR CLARITY CLEAR (CLEAR); UR COLOR YELLOW (YELLOW); UR GLUCOSE (Dip) 1+ mg/dL (NEGATIVE); UR KETONES (Dip) NEGATIVE (NEGATIVE); UR LEUKOCYTE ESTERASE (Dip) NEGATIVE Leu/ul (NEGATIVE); UR NITRITE (Dip) NEGATIVE (NEGATIVE); UR SPECIFIC GRAVITY (Dip) 1.015 (1.003-1.030); UR TOTAL PROTEIN (Dip) NEGATIVE (NEGATIVE); UR UROBILINOGEN (Dip) 2+ mg/dL (NEGATIVE)
[2018-06-23 18:27] LABS: CREATINE KINASE 61 IU/L (23-200)
[2018-06-23 18:45] LABS: CK INDEX 0.5; CK-MB 0.33 ng/ml (0.0-2.4); TROPONIN-I < 0.012 ng/ml (0.000-0.120)
[2018-06-23] MEDS: METOPROLOL (XL) 50 MG TAB PO (21:00)
[2018-06-23] MEDS: INSULIN GLARGINE [LANTus] (100 UNITS/ML) SYG SC (22:57)
[2018-06-24 06:09] LABS: ADD MAN DIFF? NO
[2018-06-24 06:21] LABS: BASOPHILS % 0.5 % (0.0-2.0); EOSINOPHILS # 0.2 10^3/ul (0.0-0.5); EOSINOPHILS % 2.9 % (0.0-7.0); HEMATOCRIT 37.8 % (37.0-47.0); HEMOGLOBIN 11.9 g/dl (12.0-16.0); LYMPHOCYTES # 2.1 10^3/ul (0.8-2.9); LYMPHOCYTES % 28.1 % (15.0-51.0); MEAN CORPUSCULAR HEMOGLOBIN 26.7 pg (29.0-33.0); MEAN CORPUSCULAR HGB CONC 31.5 g/dl (32.0-37.0); MEAN CORPUSCULAR VOLUME 84.8 fl (82.0-101.0); MEAN PLATELET VOLUME 10.9 fl (7.4-10.4); MONOCYTE # 0.9 10^3/ul (0.3-0.9); MONOCYTES % 12.3 % (0.0-11.0); NEUTROPHIL # 4.2 10^3/ul (1.6-7.5); NEUTROPHILS % 55.8 % (39.0-77.0); PLATELET COUNT 204 10^3/UL (140-415); RED BLOOD COUNT 4.46 10^6/ul (4.20-5.40); RED CELL DISTRIBUTION WIDTH 14.7 % (11.5-14.5)
[2018-06-24 06:21] LABS: WHITE BLOOD COUNT 7.6 10^3/ul (4.8-10.8)
[2018-06-24] MEDS: FUROSEMIDE 40 MG INJ IV ×2 (06:26→17:30)
[2018-06-24 07:00] LABS: CREATINE KINASE 55 IU/L (23-200)
[2018-06-24 07:02] LABS: CK INDEX 0.7; CK-MB 0.38 ng/ml (0.0-2.4); TROPONIN-I 0.015 ng/ml (0.000-0.120)
[2018-06-24 07:05] LABS: ANION GAP 12 (8-16); BLOOD UREA NITROGEN 26 mg/dl (7-20); CALCIUM 9.3 mg/dl (8.4-10.2); CARBON DIOXIDE 32 mmol/L (21-31); CHLORIDE 106 mmol/L (97-110); CREATININE 0.87 mg/dl (0.44-1.00); GLUCOSE 226 mg/dl (70-220); POTASSIUM 4.4 mmol/L (3.5-5.1); SODIUM 146 mmol/L (135-144)
[2018-06-24] MEDS: ASPIRIN (EC) 81 MG TAB PO (08:03)
[2018-06-24] MEDS: POTASSIUM CHLORIDE (SR) 20 MEQ TAB PO (08:03)
[2018-06-24] MEDS: SPIRONOLACTONE 25 MG TAB PO (08:03)
[2018-06-24] MEDS: INSULIN ASPART [NOVOLOG] 3 ML PEN SC ×7 (08:07→21:00)
[2018-06-24] MEDS: LISINOPRIL 10 MG TAB PO (08:12)
[2018-06-24] MEDS: METOPROLOL (XL) 25 MG TAB PO (08:13)
[2018-06-24] MEDS: DIGOXIN 500 MCG INJ IV (14:56)
[2018-06-24] MEDS: RIVAROXABAN 20 MG TABLET PO (17:31)
[2018-06-24] MEDS: METOPROLOL (XL) 50 MG TAB PO (22:30)
[2018-06-24] MEDS: INSULIN GLARGINE [LANTus] (100 UNITS/ML) SYG SC (22:32)
[2018-06-24] MEDS: ACETAMINOPHEN 325 MG TAB PO (22:36)
[2018-06-25] MEDS: FUROSEMIDE 40 MG INJ IV (06:44)
[2018-06-25 06:50] LABS: ADD MAN DIFF? NO
[2018-06-25 06:59] LABS: BASOPHILS % 0.5 % (0.0-2.0); EOSINOPHILS # 0.2 10^3/ul (0.0-0.5); EOSINOPHILS % 2.9 % (0.0-7.0); HEMATOCRIT 39.4 % (37.0-47.0); HEMOGLOBIN 12.5 g/dl (12.0-16.0); LYMPHOCYTES # 2.6 10^3/ul (0.8-2.9); LYMPHOCYTES % 33.5 % (15.0-51.0); MEAN CORPUSCULAR HEMOGLOBIN 26.9 pg (29.0-33.0); MEAN CORPUSCULAR HGB CONC 31.7 g/dl (32.0-37.0); MEAN CORPUSCULAR VOLUME 84.7 fl (82.0-101.0); MEAN PLATELET VOLUME 10.6 fl (7.4-10.4); MONOCYTE # 0.8 10^3/ul (0.3-0.9); MONOCYTES % 10.9 % (0.0-11.0); NEUTROPHILS % 51.8 % (39.0-77.0); PLATELET COUNT 217 10^3/UL (140-415); RED BLOOD COUNT 4.65 10^6/ul (4.20-5.40); RED CELL DISTRIBUTION WIDTH 14.7 % (11.5-14.5)
[2018-06-25 06:59] LABS: WHITE BLOOD COUNT 7.6 10^3/ul (4.8-10.8)
[2018-06-25 07:24] LABS: ANION GAP 16 (8-16); BLOOD UREA NITROGEN 31 mg/dl (7-20); CALCIUM 9.3 mg/dl (8.4-10.2); CARBON DIOXIDE 29 mmol/L (21-31); CHLORIDE 106 mmol/L (97-110); CREATININE 0.86 mg/dl (0.44-1.00); GLUCOSE 241 mg/dl (70-220); POTASSIUM 4.7 mmol/L (3.5-5.1); SODIUM 146 mmol/L (135-144)
[2018-06-25] MEDS: INSULIN ASPART [NOVOLOG] 3 ML PEN SC ×4 (07:58→12:16)
[2018-06-25] MEDS: POTASSIUM CHLORIDE (SR) 20 MEQ TAB PO (08:41)
[2018-06-25] MEDS: SPIRONOLACTONE 25 MG TAB PO (08:41)
[2018-06-25] MEDS: LISINOPRIL 10 MG TAB PO (08:41)
[2018-06-25] MEDS: ASPIRIN (EC) 81 MG TAB PO (08:41)
[2018-06-25] MEDS: METOPROLOL (XL) 50 MG TAB PO (08:42)
== END 2018-06-25 17:00 | disposition home or self-care (01) ==
LOC: E/R 16:49 → TEL 20:00
DX: I48.91 Unspecified atrial fibrillation (principal); I50.23 Acute on chronic systolic (congestive) heart failure; R60.0 Localized edema; J18.9 Pneumonia, unspecified organism; I10 Essential (primary) hypertension; E78.5 Hyperlipidemia, unspecified; E11.9 Type 2 diabetes mellitus without complications; Z86.73 Personal history of transient ischemic attack (TIA), and cerebral infarction without residual deficits
CPT/HCPCS: 36415; 71045; 80048; 81003; 82550; 82553; 82962; 84443; 84484; 85025; 93005; 96374; 96375; 99291-25; G0378

== ENCOUNTER 2018-07-10 23:09 | Observation (INO) | payer MEDICARE, OTHER ==
[2018-07-11 00:27] LABS: ADD MAN DIFF? NO
[2018-07-11 00:31] LABS: BASOPHILS % 0.3 % (0.0-2.0); EOSINOPHILS # 0.1 10^3/ul (0.0-0.5); EOSINOPHILS % 1.1 % (0.0-7.0); HEMATOCRIT 39.6 % (37.0-47.0); HEMOGLOBIN 12.6 g/dl (12.0-16.0); LYMPHOCYTES # 2.9 10^3/ul (0.8-2.9); LYMPHOCYTES % 27.8 % (15.0-51.0); MEAN CORPUSCULAR HEMOGLOBIN 26.5 pg (29.0-33.0); MEAN CORPUSCULAR HGB CONC 31.8 g/dl (32.0-37.0); MEAN CORPUSCULAR VOLUME 83.2 fl (82.0-101.0); MEAN PLATELET VOLUME 9.8 fl (7.4-10.4); MONOCYTE # 0.8 10^3/ul (0.3-0.9); MONOCYTES % 7.6 % (0.0-11.0); NEUTROPHIL # 6.5 10^3/ul (1.6-7.5); NEUTROPHILS % 62.8 % (39.0-77.0); PLATELET COUNT 252 10^3/UL (140-415); RED BLOOD COUNT 4.76 10^6/ul (4.20-5.40); RED CELL DISTRIBUTION WIDTH 14.6 % (11.5-14.5)
[2018-07-11 00:31] LABS: WHITE BLOOD COUNT 10.3 10^3/ul (4.8-10.8)
[2018-07-11 00:49] LABS: ALANINE AMINOTRANSFERASE 44 IU/L (13-69); ALBUMIN 4.2 g/dl (3.3-4.9); ALKALINE PHOSPHATASE 101 IU/L (42-121); ANION GAP 13 (8-16); ASPARTATE AMINO TRANSFERASE 31 IU/L (15-46); BILIRUBIN,INDIRECT 0.3 mg/dl (0-1.1); BILIRUBIN,TOTAL 0.3 mg/dl (0.2-1.3); BLOOD UREA NITROGEN 26 mg/dl (7-20); CALCIUM 10.5 mg/dl (8.4-10.2); CARBON DIOXIDE 31 mmol/L (21-31); CHLORIDE 102 mmol/L (97-110); CREATININE 0.99 mg/dl (0.44-1.00); GLUCOSE 214 mg/dl (70-220); POTASSIUM 4.2 mmol/L (3.5-5.1); SODIUM 142 mmol/L (135-144); TOTAL PROTEIN 7.7 g/dl (6.1-8.1)
[2018-07-11 01:01] LABS: B-TYPE NATRIURETIC PEPTIDE 357 PG/ML (0-125); TROPONIN-I 0.015 ng/ml (0.000-0.120)
[2018-07-11] MEDS: HYDROmorphONE 0.5 MG/0.5 ML SYG IV (04:24)
[2018-07-11] MEDS ORDERED: LORAZEPAM 2 MG INJ IV (04:30)
[2018-07-11] MEDS ORDERED: LORAZEPAM 2 MG INJ (06:10)
[2018-07-11] MEDS: LORAZEPAM 2 MG INJ IV (06:15)
[2018-07-11] MEDS: ONDANSETRON 4 MG INJ IV (09:22)
[2018-07-11] MEDS: HYDROmorphONE 1 MG/ML SYG IV (09:22)
[2018-07-11] MEDS ORDERED: NACL 0.9% 3 ML SYG IV (12:00)
[2018-07-11] MEDS ORDERED: ACETAMINOPHEN 325 MG TAB PO (12:00)
[2018-07-11] MEDS ORDERED: NITROGLYCERIN (SL) 0.4 MG TAB SL (12:00)
[2018-07-11] MEDS ORDERED: BISACODYL 10 MG SUPP PR (12:00)
[2018-07-11] MEDS ORDERED: ONDANSETRON 4 MG INJ IV (12:00)
[2018-07-11] MEDS: INSULIN ASPART [NOVOLOG] 3 ML PEN SC ×7 (12:00→22:46)
[2018-07-11] MEDS ORDERED: morphine 2 MG INJ IV (12:00)
[2018-07-11] MEDS ORDERED: GLUCAGON 1 MG INJ IM (14:00)
[2018-07-11] MEDS ORDERED: DEXTROSE 50% 50 ML SYRINGE IV ×2 (14:00)
[2018-07-11] MEDS ORDERED: GLUCOSE GEL 15 GRAM TUBE PO ×2 (14:00)
[2018-07-11] MEDS ORDERED: GLUCOSE GEL 15 GRAM TUBE BUCCAL (14:00)
[2018-07-11] MEDS: traMADol 50 MG TAB PO (14:19)
[2018-07-11] MEDS ORDERED: LINAGLIPTIN PO (21:00)
[2018-07-11] MEDS ORDERED: [UNRECOGNIZED DRUG - OTHER] PO (21:00)
[2018-07-11] MEDS ORDERED: METFORMIN HCL PO (21:00)
[2018-07-11] MEDS: FAMOTIDINE 20 MG INJ IV (22:31)
[2018-07-11] MEDS: METHYLPREDNISOLONE 125 MG INJ IV (22:31)
[2018-07-11] MEDS: RIVAROXABAN 20 MG TABLET PO (22:33)
[2018-07-11] MEDS: INSULIN GLARGINE [LANTus] (100 UNITS/ML) SYG SC (22:45)
[2018-07-12] MEDS: ACCU-CHEK XX (02:45)
[2018-07-12] MEDS: INSULIN ASPART [NOVOLOG] 3 ML PEN SC ×9 (03:26→22:14)
[2018-07-12] MEDS: PANTOPRAZOLE (EC) 40 MG TAB PO (06:56)
[2018-07-12] MEDS: LISINOPRIL 10 MG TAB PO ×2 (08:05→22:08)
[2018-07-12] MEDS: ASPIRIN 81 MG TAB PO (08:05)
[2018-07-12 08:40] LABS: ADD MAN DIFF? NO
[2018-07-12 08:43] LABS: WHITE BLOOD COUNT 9.9 10^3/ul (4.8-10.8)
[2018-07-12 08:43] LABS: BASOPHILS % 0.1 % (0.0-2.0); HEMATOCRIT 34.6 % (37.0-47.0); HEMOGLOBIN 11.1 g/dl (12.0-16.0); LYMPHOCYTES # 0.8 10^3/ul (0.8-2.9); LYMPHOCYTES % 8.4 % (15.0-51.0); MEAN CORPUSCULAR HEMOGLOBIN 27.1 pg (29.0-33.0); MEAN CORPUSCULAR HGB CONC 32.1 g/dl (32.0-37.0); MEAN CORPUSCULAR VOLUME 84.4 fl (82.0-101.0); MEAN PLATELET VOLUME 10.5 fl (7.4-10.4); MONOCYTE # 0.4 10^3/ul (0.3-0.9); MONOCYTES % 4.3 % (0.0-11.0); NEUTROPHIL # 8.6 10^3/ul (1.6-7.5); NEUTROPHILS % 86.5 % (39.0-77.0); PLATELET COUNT 210 10^3/UL (140-415); RED CELL DISTRIBUTION WIDTH 14.7 % (11.5-14.5)
[2018-07-12 08:56] LABS: HEMOGLOBIN A1C 10.1 % (0-5.9)
[2018-07-12] MEDS ORDERED: NON-FORMULARY/PATIENT OWN MED (Aspirin (Low Dose Aspirin) 81 MG) PO (09:00)
[2018-07-12 09:27] LABS: ALANINE AMINOTRANSFERASE 32 IU/L (13-69); ALBUMIN 3.7 g/dl (3.3-4.9); ALBUMIN/GLOBULIN RATIO 1.12; ALKALINE PHOSPHATASE 67 IU/L (42-121); ANION GAP 15 (8-16); ASPARTATE AMINO TRANSFERASE 18 IU/L (15-46); BILIRUBIN,INDIRECT 0.3 mg/dl (0-1.1); BILIRUBIN,TOTAL 0.3 mg/dl (0.2-1.3); BLOOD UREA NITROGEN 23 mg/dl (7-20); CALCIUM 9.6 mg/dl (8.4-10.2); CARBON DIOXIDE 28 mmol/L (21-31); CHLORIDE 101 mmol/L (97-110); GLUCOSE 383 mg/dl (70-220); MAGNESIUM 1.5 mg/dl (1.7-2.5); POTASSIUM 4.7 mmol/L (3.5-5.1); SODIUM 139 mmol/L (135-144)
[2018-07-12] MEDS: LEVOFLOXACIN 500MG/D5W (PMX) 100 ML IVPB (10:19)
[2018-07-12] MEDS: KETOROLAC 30 MG INJ IV (10:19)
[2018-07-12] MEDS: LINAGLIPTIN 5 MG TABLET PO (10:19)
[2018-07-12] MEDS ORDERED: METHYLPREDNISOLONE (MEDROL) DOSE PACK PO (11:00)
[2018-07-12] MEDS: METHYLPREDNISOLONE 4 MG TAB PO (11:53)
[2018-07-12 15:14] LABS: GLUCOSE 409 mg/dl (70-220)
[2018-07-12] MEDS: RIVAROXABAN 20 MG TABLET PO (17:44)
[2018-07-12] MEDS ORDERED: INSULIN ASPART [NOVOLOG] 3 ML PEN SC ×3 (18:00)
[2018-07-12] MEDS ORDERED: MAGNESIUM SULFATE 2 GM/50 ML 50 ML IVPB (20:30)
[2018-07-12] MEDS: INSULIN GLARGINE [LANTus] (100 UNITS/ML) SYG SC (21:02)
[2018-07-12] MEDS: AL HYDROX/MG HYDROX/SIMETH 30 ML CUP PO (21:30)
[2018-07-12] MEDS ORDERED: hydrALAzine 20 MG INJ IV (22:00)
[2018-07-12 22:55] LABS: ANION GAP 16 (8-16); BLOOD UREA NITROGEN 43 mg/dl (7-20); CALCIUM 9.8 mg/dl (8.4-10.2); CARBON DIOXIDE 27 mmol/L (21-31); CHLORIDE 99 mmol/L (97-110); CREATININE 1.24 mg/dl (0.44-1.00); POTASSIUM 4.9 mmol/L (3.5-5.1); SODIUM 137 mmol/L (135-144)
[2018-07-12 23:24] LABS: GLUCOSE 455 mg/dl (70-220)
[2018-07-13] MEDS ORDERED: ACCU-CHEK XX (02:00)
[2018-07-13] MEDS: INSULIN ASPART [NOVOLOG] 3 ML PEN SC ×6 (02:16→12:12)
[2018-07-13] MEDS: ACCU-CHEK XX (02:17)
[2018-07-13] MEDS: PANTOPRAZOLE (EC) 40 MG TAB PO (06:00)
[2018-07-13] MEDS: AL HYDROX/MG HYDROX/SIMETH 30 ML CUP PO (08:58)
[2018-07-13] MEDS: ASPIRIN 81 MG TAB PO (08:59)
[2018-07-13] MEDS: LEVOFLOXACIN 500MG/D5W (PMX) 100 ML IVPB (09:00)
[2018-07-13] MEDS: LINAGLIPTIN 5 MG TABLET PO (09:01)
[2018-07-13] MEDS: METHYLPREDNISOLONE 4 MG TAB PO ×2 (09:01→13:18)
[2018-07-13] MEDS: LISINOPRIL 10 MG TAB PO (09:01)
[2018-07-13 09:18] LABS: ADD MAN DIFF? NO
[2018-07-13 09:47] LABS: BASOPHILS % 0.1 % (0.0-2.0); EOSINOPHILS % 0.1 % (0.0-7.0); HEMATOCRIT 32.1 % (37.0-47.0); HEMOGLOBIN 10.1 g/dl (12.0-16.0); LYMPHOCYTES % 10.9 % (15.0-51.0); MEAN CORPUSCULAR HEMOGLOBIN 26.4 pg (29.0-33.0); MEAN CORPUSCULAR HGB CONC 31.5 g/dl (32.0-37.0); MEAN PLATELET VOLUME 10.8 fl (7.4-10.4); MONOCYTE # 1.3 10^3/ul (0.3-0.9); MONOCYTES % 6.9 % (0.0-11.0); NEUTROPHIL # 14.9 10^3/ul (1.6-7.5); NEUTROPHILS % 81.3 % (39.0-77.0); PLATELET COUNT 237 10^3/UL (140-415); RED BLOOD COUNT 3.82 10^6/ul (4.20-5.40)
[2018-07-13 09:47] LABS: WHITE BLOOD COUNT 18.4 10^3/ul (4.8-10.8)
[2018-07-13 09:55] LABS: ANION GAP 11 (8-16); BLOOD UREA NITROGEN 39 mg/dl (7-20); CALCIUM 9.5 mg/dl (8.4-10.2); CARBON DIOXIDE 28 mmol/L (21-31); CHLORIDE 106 mmol/L (97-110); CREATININE 0.88 mg/dl (0.44-1.00); GLUCOSE 265 mg/dl (70-220); POTASSIUM 4.6 mmol/L (3.5-5.1); SODIUM 140 mmol/L (135-144)
[2018-07-13 10:08] LABS: MAGNESIUM 1.6 mg/dl (1.7-2.5)
[2018-07-13] MEDS: MAGNESIUM CHLORIDE (SR) 64 MG TAB PO (16:16)
[2018-07-13] MEDS ORDERED: METHYLPREDNISOLONE 4 MG TAB PO ×2 (19:00→21:00)
[2018-07-14] MEDS ORDERED: METHYLPREDNISOLONE 4 MG TAB PO (21:00)
== END 2018-07-13 16:38 | disposition home or self-care (01) ==
LOC: E/R 23:09 → 6WM 07-11 02:26
DX: R07.89 Other chest pain (principal); I11.0 Hypertensive heart disease with heart failure; I50.23 Acute on chronic systolic (congestive) heart failure; E11.9 Type 2 diabetes mellitus without complications; I48.0 Paroxysmal atrial fibrillation; E78.5 Hyperlipidemia, unspecified; F41.9 Anxiety disorder, unspecified; F32.9 Major depressive disorder, single episode, unspecified; Z79.4 Long term (current) use of insulin; Z79.82 Long term (current) use of aspirin; Z79.01 Long term (current) use of anticoagulants; Z86.73 Personal history of transient ischemic attack (TIA), and cerebral infarction without residual deficits; Z91.14 Patient's other noncompliance with medication regimen; Z96.643 Presence of artificial hip joint, bilateral
CPT/HCPCS: 36415; 71045; 80048; 80053; 82947; 82962; 83036; 83735; 83880; 84443; 84484; 85025; 93005; 93306; 99285-25; G0378